=== PATIENT | female | born 1935 | race Caucasian/White ===

== ENCOUNTER → 2016-05-06 | Outpatient (CLI) | payer MEDICARE, MEDICAID ==
[~2016-05-06] MED LIST: ALPRAZOLAM0.5 MG PO; ANTIVERT 25MG25 MG PO; ANUSOL-HC SUPPO25 MG RC; ANUSOL-HC2.5% RC; ASPERCREME85G TP; ASPIRIN 32325 MG/TAB PO; ASPIRIN 81M81 MG/TA2 PO; ASPIRIN E.C.325 MG PO; BACTRIM DS 8001 TAB PO; BIAXIN 500MG T500 MG PO; CALCIUM CARBONATE; CEFTIN 250250 MG/TAB PO; CENTRUM SILVER1 TA2 PO; COLACE 100100 MG/CAP; COLACE 100100 MG/CAP PO; COZAAR100 MG PO; DEPAKOTE 125MG125 MG PO; DEPAKOTE 250MG250 MG PO; DEPAKOTE ER 25250 MG; DIOVAN 40MG40 MG PO; DIOVAN 80MG80 MG PO; DIOVAN80 M1 PO; DIOVAN80 MG PO; DULCOLAX S10 MG/SUPP RC; DULCOLAX10 MG RC; FERROUS SU325 MG/TAB PO; FLONASEALLERGY NS; FLORINEF ACETA0.1 MG; FLORINEF ACETA0.1 MG PO; FOLIC ACID; FOLIC ACID 11 MG/TA1 PO; HCTZ; HUMIRA40 MG/0.1 SC; HUMIRA40 MG/0.8 MR; HYDROCORTISO28.35 G1 TP; HYDROCORTISO28.35 GM TP; IMODIUM 2MG CAPS2 MG PO; IPRATROPIUM BROM3 M1 IH; IRON325 M2 PO; ISOSOURCE 1.5250 ML PEG; K-DUR 2020 MEQ PO; K-DUR20 MEQ PO; K-TAB20 PO; KLOR-CON/2525 MEQ; LASIX 20MG TABL20 MG PO; LEVAQUIN 750MG750 M1 PO; LEVOTHYROXINE0.1 MG PO; LEVOXYL0.075 MG PO; LOPRESSOR 225 MG/TAB PO; MACROBID 1100 MG/CAP PO; MAGNESIUM HYDROXIDE PO; MAGNESIUM250 M1 PO; MELATONIN5 M1 PO; MICROZIDE12.5 MG PO; MILK OF MA400 MG/5 M; MILK OF MA400 MG/52; MIRALAX PA17 GM/Dose PO; MULTIPLE VITAMI1 CAP PO; MVI; MYLANTA 150 ML150 M1; MYLANTA 150 ML150 M1 PO; NAMENDA 10MG TA10 MG PO; NORCO 325 MG-51 TAB PO; OYSCO 500500 M1 PO; PERIDEX (CHLOR480 ML MM; PRAVACHOL 20MG20 MG PO; PREMARIN .3MG0.3 MG PO; PREMARIN V0.625 MG/G VG; PREMARIN0.3 MG PO; PRILOSEC 20MG20 MG PO; PRO STAT; PROVERA 2.5MG2.5 MG PO; PROVERA5 MG PO; REMERON 15M15 MG/TA1 PO; ROBITUSSIN100 MG/5 M PO; SALINE MIST 4545 ML NS; SENOKOT8.6 MG PO; SEROQUEL 1100 MG/TAB PO; SEROQUEL 2525 MG/TAB; SEROQUEL 2525 MG/TAB PO; SINGULAIR 110 MG/TAB PO; SINGULAIR10 MG PO; SYNTHROID0.075 MG/T PO; SYNTHROID0.088 MG/T PO; SYNTHROID0.1 MG/TAB PO; THERAGRAN1 TA1 PO; TOPROL XL 25MG25 MG PO; TUMS 500500 MG PO; TYLENOL 325MG325 MG; TYLENOL 325MG325 MG PO; TYLENOL ARTHRI650 M1; TYLENOL SU650 MG/SUP RC; VITAMIN C500 MG PO; VITAMIN E200 I1 PO; XANAX .25M0.25 MG/TA PO; XANAX 0.5MG0.5 MG PO; XARELTO10 MG PO; ZANTAC 150MG T150 MG PO; ZITHROMAX500 M2 PO; [UNRECOGNIZED DRUG - OTHER] PEG; [UNRECOGNIZED DRUG - OTHER] PO
== END ==
LOC: ZCOL.LAB 15:56
DX: F03.90 Unspecified dementia, unspecified severity, without behavioral disturbance, psychotic disturbance, mood disturbance, and anxiety (principal)

== ENCOUNTER → 2016-07-14 | Outpatient (CLI) | payer MEDICARE, MEDICAID ==
[2016-07-14 17:43] LABS: ADJUSTED CALCIUM 9.5 mg/dL (8.4-10.2); ALBUMIN 3.9 gm/dL (3.5-5.0); BILIRUBIN,TOTAL 0.7 mg/dL (0.0-1.0); CALCIUM 9.4 mg/dL (8.4-10.2); CREATININE, serum 1.24 mg/dL (0.52-1.25); POTASSIUM 4.3 mmol/L (3.4-5.0); TOTAL PROTEIN 6.9 gm/dL (6.4-8.2)
== END ==
LOC: ZCOL.LAB 15:05
PROVIDERS: Internal Medicine
DX: E87.1 Hypo-osmolality and hyponatremia (principal)

== ENCOUNTER 2016-08-21 23:40 | Inpatient (IN) | payer MEDICARE, MEDICAID ==
[~2016-08-21] VITALS: Ht 172.7 cm; Wt 81.3 kg
[~2016-08-21 23:40] MED LIST changes: -ASPERCREME85G TP; -CEFTIN 250250 MG/TAB PO; -FERROUS SU325 MG/TAB PO; -IMODIUM 2MG CAPS2 MG PO; -K-TAB20 PO; -MACROBID 1100 MG/CAP PO; -MICROZIDE12.5 MG PO; -MILK OF MA400 MG/52; -MIRALAX PA17 GM/Dose PO; -NORCO 325 MG-51 TAB PO
[2016-08-22] MEDS ORDERED: SYNTHROID0.1 MG/TAB PO (01:12)
[2016-08-22 01:14] LABS: BASO # 0.1 (0.0-0.2); BASO % 0.2 % (0.0-2.0); EOS # 0.2 (0.0-0.7); EOS % 0.8 % (0-4.0); GRAN % 85.8 % (42.2-75.2); HEMOGLOBIN 12.1 g/dl (12.5-16.0); LYMPH # 1.8 (1.2-3.4); LYMPH % 7.7 % (20.0-51.0); MEAN CELL VOLUME 93 fl (80.0-100.0); MEAN CORPUSCULAR HEMOGLOBIN 32 pg (27.0-31.0); MEAN CORPUSCULAR HGB CONC 35 g/dl (33.0-37.0); MEAN PLATELET VOLUME 9.7 fl (7.4-10.4); MONO # 1.1 (0.1-0.6); MONO % 4.5 % (1.7-9.3); PLATELET COUNT 263 K/mm3 (130-400); RED BLOOD COUNT 3.78 M/mm3 (4.10-5.30); REDCELL DISTRIBUTION WIDTH-CV 13.4 % (11.5-14.5)
[2016-08-22 01:15] LABS: HEMATOCRIT 35.1 % (37.0-47.0); WHITE BLOOD COUNT 23.3 K/mm3 (4.8-10.8)
[2016-08-22 01:19] LABS: PROTHROMBIN TIME 11.5 SECONDS (9.7-12.8)
[2016-08-22 01:24] LABS: ADJUSTED CALCIUM 8.9 mg/dL (8.4-10.2); ALANINE AMINOTRANSFERASE 53 U/L (9-52); ALBUMIN 4.1 gm/dL (3.5-5.0); ALKALINE PHOSPHATASE 91 U/L (50-136); ANION GAP 12 mmol/L (7-16); BILIRUBIN,TOTAL 0.6 mg/dL (0.0-1.0); BLOOD UREA NITROGEN 32 mg/dL (7-17); CARBON DIOXIDE 25 mmol/L (22-30); CREATININE, serum 1.91 mg/dL (0.52-1.25); GLUCOSE 127 mg/dL (74-106); SODIUM 125 mmol/L (137-145); TOTAL PROTEIN 7.2 gm/dL (6.4-8.2)
[2016-08-22 01:26] LABS: CHLORIDE 88 mmol/L (98-107); POTASSIUM 5.8 mmol/L (3.4-5.0)
[2016-08-22] MEDS ORDERED: ASPIRIN 81M81 MG/TA2 PO (01:28)
[2016-08-22] MEDS ORDERED: MIRALAX PA17 GM/Dose PO (01:29)
[2016-08-22] MEDS ORDERED: MICROZIDE12.5 MG PO (01:32)
[2016-08-22] MEDS ORDERED: MILK OF MA400 MG/52 (01:35)
[2016-08-22] MEDS ORDERED: IMODIUM 2MG CAPS2 MG PO (01:37)
[2016-08-22] MEDS ORDERED: ASPERCREME85G TP (01:38)
[2016-08-22] MEDS ORDERED: NORCO 325 MG-51 TAB PO (01:38)
[2016-08-22 02:03] LABS: TROPONIN-I < 0.012 ng/mL (0.000-0.034)
[2016-08-22 03:25] VITALS: BP 113/56; PULSE 62; TEMP 97.6
[2016-08-22 06:11] LABS: HYALINE CAST >12 /lpf; PH 5 (5-8); SQUAMOUS EPITHELIAL 0-2 /hpf; URINE APPEARANCE Cloudy; URINE BACTERIA Moderate /hpf; URINE BILIRUBIN Negative (NEGATIVE); URINE BLOOD Negative (NEGATIVE); URINE COLOR Yellow; URINE GLUCOSE Negative (NEGATIVE); URINE KETONE Negative (NEGATIVE); URINE UROBILINOGEN Negative (NEGATIVE); URINE WBC >50 /hpf
[2016-08-22 06:59] LABS: BASO # 0.1 (0.0-0.2); BASO % 0.2 % (0.0-2.0); EOS % 0.1 % (0-4.0); GRAN # 18.7 (1.4-6.5); LYMPH # 1.3 (1.2-3.4); LYMPH % 5.9 % (20.0-51.0); MEAN CELL VOLUME 94 fl (80.0-100.0); MEAN CORPUSCULAR HGB CONC 34 g/dl (33.0-37.0); MEAN PLATELET VOLUME 9.9 fl (7.4-10.4); MONO # 1.3 (0.1-0.6); MONO % 5.9 % (1.7-9.3); PLATELET COUNT 286 K/mm3 (130-400); RED BLOOD COUNT 3.67 M/mm3 (4.10-5.30); REDCELL DISTRIBUTION WIDTH-CV 13.3 % (11.5-14.5)
[2016-08-22 07:07] LABS: HEMATOCRIT 34.6 % (37.0-47.0); HEMOGLOBIN 11.6 g/dl (12.5-16.0); MEAN CORPUSCULAR HEMOGLOBIN 32 pg (27.0-31.0); WHITE BLOOD COUNT 21.5 K/mm3 (4.8-10.8)
[2016-08-22 07:19] LABS: CALCIUM 8.8 mg/dL (8.4-10.2); CREATININE, serum 2.41 mg/dL (0.52-1.25)
[2016-08-22 07:42] LABS: POTASSIUM 8.3 mmol/L (3.4-5.0)
[2016-08-22 08:43] VITALS: BP 103/53; PULSE 64; TEMP 97.5
[2016-08-22 13:55] VITALS: BP 101/47; PULSE 62; TEMP 96.5
[2016-08-22 18:22] VITALS: BP 106/65; PULSE 64; TEMP 97.5
[2016-08-22 19:53] LABS: CREATININE, serum 2.61 mg/dL (0.52-1.25)
[2016-08-22 21:41] VITALS: BP 128/58; PULSE 72; TEMP 97
[2016-08-23] VITALS (15 sets, daily range): BP systolic 109–157; BP diastolic 38–88; PULSE 64–99; TEMP 97–99.3
[2016-08-23 08:09] LABS: ALBUMIN 2.7 gm/dL (3.5-5.0); BILIRUBIN,TOTAL 0.5 mg/dL (0.0-1.0); CREATININE, serum 2.09 mg/dL (0.52-1.25); POTASSIUM 5.2 mmol/L (3.4-5.0); TOTAL PROTEIN 5.1 gm/dL (6.4-8.2)
[2016-08-23 08:10] LABS: BASO % 0.2 % (0.0-2.0); EOS # 0.2 (0.0-0.7); LYMPH # 1.5 (1.2-3.4); MEAN CORPUSCULAR HGB CONC 33 g/dl (33.0-37.0)
[2016-08-23 08:27] LABS: MEAN CORPUSCULAR HEMOGLOBIN 32 pg (27.0-31.0)
[2016-08-23 08:58] LABS: EOS % 1.2 % (0-4.0); GRAN # 11.5 (1.4-6.5); GRAN % 81.9 % (42.2-75.2); HEMOGLOBIN 7.6 g/dl (12.5-16.0); LYMPH % 10.5 % (20.0-51.0); MEAN CELL VOLUME 96 fl (80.0-100.0); MEAN PLATELET VOLUME 9.9 fl (7.4-10.4); MONO # 0.8 (0.1-0.6); MONO % 5.6 % (1.7-9.3); PLATELET COUNT 175 K/mm3 (130-400); RED BLOOD COUNT 2.39 M/mm3 (4.10-5.30); REDCELL DISTRIBUTION WIDTH-CV 13.5 % (11.5-14.5)
[2016-08-23 14:29] LABS: CREATININE, serum 1.79 mg/dL (0.52-1.25); POTASSIUM 5.3 mmol/L (3.4-5.0)
[2016-08-24 01:21] VITALS: BP 142/51; PULSE 85; TEMP 99.2
[2016-08-24 04:50] VITALS: BP 127/38; PULSE 95; TEMP 98.6
[2016-08-24 07:07] LABS: BASO % 0.3 % (0.0-2.0); EOS # 0.4 (0.0-0.7); EOS % 2.9 % (0-4.0); GRAN # 8.3 (1.4-6.5); LYMPH # 2.6 (1.2-3.4); LYMPH % 21.6 % (20.0-51.0); MEAN CELL VOLUME 94 fl (80.0-100.0); MEAN CORPUSCULAR HGB CONC 33 g/dl (33.0-37.0); MONO # 0.7 (0.1-0.6); MONO % 5.5 % (1.7-9.3); PLATELET COUNT 148 K/mm3 (130-400); RED BLOOD COUNT 2.78 M/mm3 (4.10-5.30); REDCELL DISTRIBUTION WIDTH-CV 15.6 % (11.5-14.5)
[2016-08-24 07:32] LABS: HEMATOCRIT 26.1 % (37.0-47.0); HEMOGLOBIN 8.7 g/dl (12.5-16.0); MEAN CORPUSCULAR HEMOGLOBIN 31 pg (27.0-31.0)
[2016-08-24 07:55] LABS: CALCIUM 7.8 mg/dL (8.4-10.2); CREATININE, serum 1.43 mg/dL (0.52-1.25); POTASSIUM 4.5 mmol/L (3.4-5.0)
[2016-08-24 09:33] VITALS: BP 115/42; PULSE 94; TEMP 99.2
[2016-08-24 13:18] VITALS: BP 130/40; PULSE 49; TEMP 98.7
[2016-08-24 17:30] VITALS: BP 154/89; PULSE 119
[2016-08-24 22:29] VITALS: BP 140/65; PULSE 84; TEMP 98.1
[2016-08-25] VITALS (17 sets, daily range): BP systolic 105–178; BP diastolic 46–85; PULSE 76–117; TEMP 97.6–98.6
[2016-08-25 06:54] LABS: BASO # 0.1 (0.0-0.2); BASO % 0.5 % (0.0-2.0); EOS # 0.4 (0.0-0.7); EOS % 3.8 % (0-4.0); GRAN # 6.2 (1.4-6.5); GRAN % 63.8 % (42.2-75.2); LYMPH # 2.3 (1.2-3.4); LYMPH % 23.9 % (20.0-51.0); MEAN CELL VOLUME 93 fl (80.0-100.0); MEAN CORPUSCULAR HGB CONC 34 g/dl (33.0-37.0); MEAN PLATELET VOLUME 9.3 fl (7.4-10.4); MONO # 0.8 (0.1-0.6); MONO % 7.7 % (1.7-9.3); PLATELET COUNT 149 K/mm3 (130-400); RED BLOOD COUNT 2.79 M/mm3 (4.10-5.30); REDCELL DISTRIBUTION WIDTH-CV 15.1 % (11.5-14.5); WHITE BLOOD COUNT 9.8 K/mm3 (4.8-10.8)
[2016-08-25 07:03] LABS: CALCIUM 7.9 mg/dL (8.4-10.2); CREATININE, serum 0.94 mg/dL (0.52-1.25); POTASSIUM 4.1 mmol/L (3.4-5.0)
[2016-08-25 07:07] LABS: HEMATOCRIT 25.9 % (37.0-47.0); HEMOGLOBIN 8.7 g/dl (12.5-16.0); MEAN CORPUSCULAR HEMOGLOBIN 31 pg (27.0-31.0)
[2016-08-26 01:32] VITALS: BP 143/63; PULSE 58; TEMP 96.9
[2016-08-26 06:16] VITALS: BP 169/73; PULSE 81; TEMP 97.8
[2016-08-26 07:47] LABS: HEMATOCRIT 29.4 % (37.0-47.0); INR 1.1 (0.8-3.0); PROTHROMBIN TIME 12.4 SECONDS (9.7-12.8)
[2016-08-26 10:11] VITALS: BP 156/58; PULSE 78; TEMP 98.3
[2016-08-26 13:25] VITALS: BP 170/82; PULSE 85; TEMP 97
[2016-08-26 18:03] VITALS: BP 172/67; PULSE 95; TEMP 97.9
[2016-08-26 21:49] VITALS: BP 158/65; PULSE 98; TEMP 99.1
[2016-08-27 01:22] VITALS: BP 166/75; PULSE 93; TEMP 99
[2016-08-27 05:01] VITALS: BP 159/60; PULSE 85; TEMP 98.1
[2016-08-27 07:02] LABS: HEMATOCRIT 25.5 % (37.0-47.0); HEMOGLOBIN 8.5 g/dl (12.5-16.0)
[2016-08-27 09:19] VITALS: BP 157/86; PULSE 109; TEMP 99.4
[2016-08-27] MEDS ORDERED: NORCO 325 MG-51 TAB PO (11:12)
[2016-08-27] MEDS ORDERED: CEFTIN 250250 MG/TAB PO (11:18)
[2016-08-27] MEDS ORDERED: FERROUS SU325 MG/TAB PO (11:35)
[2016-08-27 14:07] VITALS: BP 163/76; PULSE 89; TEMP 99.2
[2016-08-27] MEDS ORDERED: ASPIRIN 32325 MG/TAB PO (14:24)
[2016-08-27 14:40] VITALS: BP 163/76; PULSE 89; TEMP 99.2
[2016-08-28] MEDS ORDERED: COLACE 100100 MG/CAP PO (22:28)
== END 2016-08-27 15:23 | DRG 481 ==
LOC: COL.ER 23:40 → SURG 08-22 01:50
PROVIDERS: Internal Medicine; Nurse Practitioner Family; Orthopaedic Surgery; Physician Assistant
PROC: 0QS704Z Reposition Left Upper Femur with Internal Fixation Device, Open Approach (ICD-10-PCS; principal; 2016-08-25 08:30)
DX: S72.002A Fracture of unspecified part of neck of left femur, initial encounter for closed fracture (principal); M97.02XA Periprosthetic fracture around internal prosthetic left hip joint, initial encounter; E87.1 Hypo-osmolality and hyponatremia; F05 Delirium due to known physiological condition; N39.0 Urinary tract infection, site not specified; N17.9 Acute kidney failure, unspecified; Z66 Do not resuscitate; W18.30XA Fall on same level, unspecified, initial encounter; I10 Essential (primary) hypertension; B96.20 Unspecified Escherichia coli [E. coli] as the cause of diseases classified elsewhere; F03.90 Unspecified dementia, unspecified severity, without behavioral disturbance, psychotic disturbance, mood disturbance, and anxiety; Z86.73 Personal history of transient ischemic attack (TIA), and cerebral infarction without residual deficits; Z87.891 Personal history of nicotine dependence; E87.5 Hyperkalemia; D50.0 Iron deficiency anemia secondary to blood loss (chronic)
CPT/HCPCS: 99223-AI; 99232-AI; 99233-AI; 99239; A4315; A9284; C1713; C1776; J0610; J0690; J0696; J1100; J1644; J1815; J2270; J2405; J2704; J3010; J7030; J7120; L1830; P9016

== ENCOUNTER 2016-08-28 18:31 | Emergency (ER) | payer MEDICARE, MEDICAID, BC ==
[~2016-08-28] VITALS: Wt 79.1 kg
[~2016-08-28 18:31] MED LIST changes: +ASPERCREME85G TP; +CEFTIN 250250 MG/TAB PO; +FERROUS SU325 MG/TAB PO; +IMODIUM 2MG CAPS2 MG PO; +MICROZIDE12.5 MG PO; +MILK OF MA400 MG/52; +MIRALAX PA17 GM/Dose PO; +NORCO 325 MG-51 TAB PO
[2016-08-28 18:38] VITALS: TEMP 98
[2016-08-28 19:41] LABS: VENOUS BLOOD GAS BE 8.6 (-4-4); VENOUS BLOOD GAS SAO2 22.4 % (60-80); VENOUS BLOOD GAS SITE VENIPUNCTURE
[2016-08-28 19:46] LABS: BASO # 0.1 (0.0-0.2); BASO % 0.5 % (0.0-2.0); EOS # 0.4 (0.0-0.7); EOS % 3.4 % (0-4.0); GRAN # 7.4 (1.4-6.5); GRAN % 58.6 % (42.2-75.2); LYMPH # 3.2 (1.2-3.4); LYMPH % 25.6 % (20.0-51.0); MEAN CELL VOLUME 94 fl (80.0-100.0); MEAN CORPUSCULAR HGB CONC 33 g/dl (33.0-37.0); MONO % 7.7 % (1.7-9.3); PLATELET COUNT 238 K/mm3 (130-400); RED BLOOD COUNT 3.27 M/mm3 (4.10-5.30); REDCELL DISTRIBUTION WIDTH-CV 15.1 % (11.5-14.5); WHITE BLOOD COUNT 12.6 K/mm3 (4.8-10.8)
[2016-08-28 19:48] LABS: HEMATOCRIT 30.7 % (37.0-47.0); HEMOGLOBIN 10.1 g/dl (12.5-16.0); MEAN CORPUSCULAR HEMOGLOBIN 31 pg (27.0-31.0)
[2016-08-28 19:58] LABS: ACETAMINOPHEN < 10 ug/mL (10-30); ANION GAP 8 mmol/L (7-16); BLOOD UREA NITROGEN 18 mg/dL (7-17); C-REACTIVE PROTEIN 5.2 mg/dL (0.0-0.9); CALCIUM 8.7 mg/dL (8.4-10.2); CARBON DIOXIDE 34 mmol/L (22-30); CHLORIDE 95 mmol/L (98-107); CREATININE, serum 0.99 mg/dL (0.52-1.25); GLUCOSE 86 mg/dL (74-106); POTASSIUM 3.7 mmol/L (3.4-5.0); SALICYLATE < 1.0 mg/dL; SODIUM 137 mmol/L (137-145)
[2016-08-28 20:05] LABS: B-TYPE NATRIURETIC PEPTIDE 10800 pg/mL (0-450)
[2016-08-28 20:07] LABS: TROPONIN-I 0.143 ng/mL (0.000-0.034)
[2016-08-28 20:50] LABS: PH 7 (5-8); SQUAMOUS EPITHELIAL None Seen /hpf; URINE APPEARANCE Clear; URINE BACTERIA None Seen /hpf; URINE BILIRUBIN Negative (NEGATIVE); URINE BLOOD Negative (NEGATIVE); URINE COLOR Yellow; URINE GLUCOSE Negative (NEGATIVE); URINE KETONE Negative (NEGATIVE); URINE RBC 0-2 /hpf; URINE UROBILINOGEN Negative (NEGATIVE); URINE WBC 0-2 /hpf
[2016-08-28 21:15] LABS: AMPHETAMINE URINE NEGATIVE; BARBITURATES URINE NEGATIVE; BENZODIAZEPINES URINE NEGATIVE; BUPRENORPHINE URINE NEGATIVE; METHADONE URINE NEGATIVE; OPIATES URINE POSITIVE; OXYCODONE URINE NEGATIVE; PHENCYCLIDINE URINE NEGATIVE; PROPOXYPHENE URINE NEGATIVE; THC CANNABINOIDS URINE NEGATIVE
[2016-08-28] MEDS ORDERED: COLACE 100100 MG/CAP PO (22:28)
[2016-08-28 23:25] VITALS: BP 146/56; PULSE 68
== END 2016-08-28 23:32 | disposition home or self-care (01) ==
LOC: COL.ER 18:31
PROVIDERS: Emergency Medicine
DX: G89.18 Other acute postprocedural pain (principal); S72.92XD Unspecified fracture of left femur, subsequent encounter for closed fracture with routine healing; E03.9 Hypothyroidism, unspecified; F03.90 Unspecified dementia, unspecified severity, without behavioral disturbance, psychotic disturbance, mood disturbance, and anxiety; I10 Essential (primary) hypertension; Z86.73 Personal history of transient ischemic attack (TIA), and cerebral infarction without residual deficits; Z87.891 Personal history of nicotine dependence
CPT/HCPCS: J1170; J7030

== ENCOUNTER → 2016-09-02 | Outpatient (REF) ==
[~2016-09-02] MED LIST changes: +K-TAB20 PO; +MACROBID 1100 MG/CAP PO
[2016-09-02 11:27] LABS: BASO % 0.2 % (0.0-2.0); EOS # 0.2 (0.0-0.7); EOS % 1.9 % (0-4.0); GRAN % 70.1 % (42.2-75.2); LYMPH # 2.5 (1.2-3.4); LYMPH % 19.6 % (20.0-51.0); MEAN CELL VOLUME 99 fl (80.0-100.0); MEAN CORPUSCULAR HGB CONC 32 g/dl (33.0-37.0); MEAN PLATELET VOLUME 9.4 fl (7.4-10.4); MONO # 0.9 (0.1-0.6); MONO % 6.9 % (1.7-9.3); PLATELET COUNT 265 K/mm3 (130-400); REDCELL DISTRIBUTION WIDTH-CV 15.9 % (11.5-14.5); WHITE BLOOD COUNT 12.8 K/mm3 (4.8-10.8)
[2016-09-02 11:30] LABS: HEMATOCRIT 26.6 % (37.0-47.0); HEMOGLOBIN 8.6 g/dl (12.5-16.0); MEAN CORPUSCULAR HEMOGLOBIN 32 pg (27.0-31.0)
[2016-09-02 11:45] LABS: ADJUSTED CALCIUM 8.3 mg/dL (8.4-10.2); ALBUMIN 2.7 gm/dL (3.5-5.0); BILIRUBIN,TOTAL 1.1 mg/dL (0.0-1.0); CALCIUM 7.3 mg/dL (8.4-10.2); CREATININE, serum 0.89 mg/dL (0.52-1.25); MAGNESIUM 1.7 mg/dL (1.6-2.3); POTASSIUM 3.8 mmol/L (3.4-5.0); TOTAL PROTEIN 5.2 gm/dL (6.4-8.2)
[2016-09-02 12:12] LABS: THYROID STIMULATING HORMONE 49.3 uIU/mL (0.465-4.680)
== END ==
LOC: ZCOL.LAB 11:19
DX: Z01.89 Encounter for other specified special examinations (principal)

== ENCOUNTER 2016-09-06 22:14 | Inpatient (IN) | payer MEDICARE, BC, MEDICAID ==
[~2016-09-06] VITALS: Ht 185.4 cm; Wt 86.1 kg
[~2016-09-06 22:14] MED LIST changes: -K-TAB20 PO; -MACROBID 1100 MG/CAP PO
[2016-09-06 23:01] LABS: BASO # 0.1 (0.0-0.2); BASO % 0.4 % (0.0-2.0); EOS % 0.3 % (0-4.0); GRAN # 8.9 (1.4-6.5); GRAN % 73.9 % (42.2-75.2); LYMPH # 2.1 (1.2-3.4); MEAN CELL VOLUME 91 fl (80.0-100.0); MEAN CORPUSCULAR HGB CONC 35 g/dl (33.0-37.0); MEAN PLATELET VOLUME 9.5 fl (7.4-10.4); MONO # 0.9 (0.1-0.6); MONO % 7.3 % (1.7-9.3); PLATELET COUNT 440 K/mm3 (130-400); RED BLOOD COUNT 3.06 M/mm3 (4.10-5.30); REDCELL DISTRIBUTION WIDTH-CV 15.9 % (11.5-14.5)
[2016-09-06 23:08] LABS: ADJUSTED CALCIUM 8.3 mg/dL (8.4-10.2); ALANINE AMINOTRANSFERASE 449 U/L (9-52); ALBUMIN 3.6 gm/dL (3.5-5.0); ALKALINE PHOSPHATASE 750 U/L (50-136); ANION GAP 11 mmol/L (7-16); BILIRUBIN,TOTAL 2.9 mg/dL (0.0-1.0); BLOOD UREA NITROGEN 12 mg/dL (7-17); CARBON DIOXIDE 30 mmol/L (22-30); CREATININE, serum 0.83 mg/dL (0.52-1.25); GLUCOSE 99 mg/dL (74-106); LIPASE 1536 U/L (23-300); MAGNESIUM 1.5 mg/dL (1.6-2.3); PHOSPHOROUS 3.3 mg/dL (2.5-4.5); POTASSIUM 3.4 mmol/L (3.4-5.0); SODIUM 121 mmol/L (137-145); TOTAL PROTEIN 6.7 gm/dL (6.4-8.2)
[2016-09-06 23:09] LABS: INR 1.1 (0.8-3.0)
[2016-09-06 23:10] LABS: HEMATOCRIT 27.8 % (37.0-47.0); HEMOGLOBIN 9.7 g/dl (12.5-16.0); MEAN CORPUSCULAR HEMOGLOBIN 32 pg (27.0-31.0)
[2016-09-06 23:11] LABS: ACETAMINOPHEN < 10 ug/mL (10-30)
[2016-09-06 23:12] LABS: CHLORIDE 81 mmol/L (98-107); PARTIAL THROMBOPLASTIN TIME 28.6 SECONDS (26.0-37.0)
[2016-09-06 23:43] LABS: PH 6 (5-8); SQUAMOUS EPITHELIAL 0-2 /hpf; URINE APPEARANCE Cloudy; URINE BACTERIA None Seen /hpf; URINE BILIRUBIN Negative (NEGATIVE); URINE BLOOD Negative (NEGATIVE); URINE COLOR Amber; URINE GLUCOSE Negative (NEGATIVE); URINE KETONE Negative (NEGATIVE); URINE RBC 0-2 /hpf; URINE UROBILINOGEN >=4.0 mg/dL (NEGATIVE)
[2016-09-06 23:45] LABS: URINE WBC >50 /hpf
[2016-09-07 01:19] VITALS: BP 182/93; PULSE 64; TEMP 98.2
[2016-09-07 03:41] VITALS: BP 162/90; PULSE 66; TEMP 98.3
[2016-09-07 08:40] VITALS: BP 155/79; PULSE 65; TEMP 98.2
[2016-09-07 12:19] VITALS: BP 172/59; PULSE 64; TEMP 99
[2016-09-07 14:37] LABS: MAGNESIUM 1.5 mg/dL (1.6-2.3)
[2016-09-07 16:42] VITALS: BP 168/78; PULSE 78; TEMP 98.1
[2016-09-07 23:30] VITALS: BP 160/58; PULSE 77; TEMP 98
[2016-09-08 03:51] VITALS: BP 169/60; PULSE 79; TEMP 98.5
[2016-09-08 07:45] VITALS: BP 178/65; PULSE 94; TEMP 98.9
[2016-09-08 08:18] LABS: BASO # 0.1 (0.0-0.2); BASO % 0.7 % (0.0-2.0); EOS # 0.1 (0.0-0.7); EOS % 0.7 % (0-4.0); GRAN # 7.4 (1.4-6.5); GRAN % 69.3 % (42.2-75.2); LYMPH # 1.8 (1.2-3.4); LYMPH % 17.2 % (20.0-51.0); MEAN CELL VOLUME 95 fl (80.0-100.0); MEAN CORPUSCULAR HGB CONC 33 g/dl (33.0-37.0); MONO # 1.2 (0.1-0.6); PLATELET COUNT 444 K/mm3 (130-400); RED BLOOD COUNT 2.62 M/mm3 (4.10-5.30); REDCELL DISTRIBUTION WIDTH-CV 17.2 % (11.5-14.5); WHITE BLOOD COUNT 10.7 K/mm3 (4.8-10.8)
[2016-09-08 08:19] LABS: HEMATOCRIT 24.9 % (37.0-47.0); HEMOGLOBIN 8.3 g/dl (12.5-16.0); MEAN CORPUSCULAR HEMOGLOBIN 32 pg (27.0-31.0)
[2016-09-08 08:41] LABS: ADJUSTED CALCIUM 8.6 mg/dL (8.4-10.2); ALBUMIN 2.8 gm/dL (3.5-5.0); BILIRUBIN,TOTAL 1.5 mg/dL (0.0-1.0); CALCIUM 7.6 mg/dL (8.4-10.2); CREATININE, serum 0.68 mg/dL (0.52-1.25); MAGNESIUM 1.9 mg/dL (1.6-2.3); TOTAL PROTEIN 5.5 gm/dL (6.4-8.2)
[2016-09-08 11:25] VITALS: BP 154/60; PULSE 79; TEMP 99
[2016-09-08 15:52] VITALS: BP 171/70; PULSE 97; TEMP 98.9
[2016-09-08 19:32] VITALS: BP 171/68; PULSE 93; TEMP 99.2
[2016-09-08 23:54] VITALS: BP 162/64; PULSE 87; TEMP 98.9
[2016-09-09 03:51] VITALS: BP 166/72; PULSE 91; TEMP 98.3
[2016-09-09 08:01] VITALS: BP 171/67; PULSE 93; TEMP 99.1
[2016-09-09] MEDS ORDERED: MACROBID 1100 MG/CAP PO (11:20)
[2016-09-09] MEDS ORDERED: TYLENOL 325MG325 MG PO (11:24)
[2016-09-09] MEDS ORDERED: K-TAB20 PO (11:27)
[2016-09-09 11:28] LABS: MEAN CELL VOLUME 96 fl (80.0-100.0); MEAN CORPUSCULAR HGB CONC 33 g/dl (33.0-37.0); MEAN PLATELET VOLUME 9.4 fl (7.4-10.4); PLATELET COUNT 475 K/mm3 (130-400); RED BLOOD COUNT 2.86 M/mm3 (4.10-5.30); REDCELL DISTRIBUTION WIDTH-CV 17.4 % (11.5-14.5); WHITE BLOOD COUNT 12.2 K/mm3 (4.8-10.8)
[2016-09-09] MEDS ORDERED: XANAX 0.5MG0.5 MG PO (11:28)
[2016-09-09] MEDS ORDERED: NORCO 325 MG-51 TAB PO (11:28)
[2016-09-09] MEDS ORDERED: XANAX .25M0.25 MG/TA PO (11:28)
[2016-09-09 11:34] LABS: ADJUSTED CALCIUM 8.4 mg/dL (8.4-10.2); ALBUMIN 3.1 gm/dL (3.5-5.0); BILIRUBIN,TOTAL 1.7 mg/dL (0.0-1.0); CALCIUM 7.7 mg/dL (8.4-10.2); CREATININE, serum 0.61 mg/dL (0.52-1.25); MAGNESIUM 1.7 mg/dL (1.6-2.3); POTASSIUM 3.2 mmol/L (3.4-5.0); TOTAL PROTEIN 5.9 gm/dL (6.4-8.2)
[2016-09-09 11:39] LABS: HEMATOCRIT 27.4 % (37.0-47.0); MEAN CORPUSCULAR HEMOGLOBIN 31 pg (27.0-31.0)
[2016-09-09 11:40] LABS: ADD PATHOLOGY DIFF REVIEW NO
[2016-09-09 12:06] VITALS: BP 160/60; PULSE 75; TEMP 99.5
[2016-09-09 12:24] LABS: BAND 7 % (0-10); NEUTROPHILS 74 % (42.0-75.2); PLATELET ESTIMATE INCREASED (NORMAL); TOTAL CELLS COUNTED 100
[2016-09-09 13:02] VITALS: BP 160/60; PULSE 75; TEMP 99.5
== END 2016-09-09 14:45 | DRG 445 ==
LOC: COL.ER 22:14 → MEDICAL 09-07 00:31 → EDBEDREQ 09-07 00:48 → MEDICAL 09-09 14:45
PROVIDERS: Emergency Medicine; Family Medicine
DX: K80.50 Calculus of bile duct without cholangitis or cholecystitis without obstruction (principal); E87.1 Hypo-osmolality and hyponatremia; N39.0 Urinary tract infection, site not specified; Z66 Do not resuscitate; E87.6 Hypokalemia; E83.42 Hypomagnesemia; I10 Essential (primary) hypertension; B95.2 Enterococcus as the cause of diseases classified elsewhere; F03.90 Unspecified dementia, unspecified severity, without behavioral disturbance, psychotic disturbance, mood disturbance, and anxiety; Z87.891 Personal history of nicotine dependence
CPT/HCPCS: 99222-AI; 99232-AI; 99239; J0696; J1644; J1956; J3475; J7030; J7050; Q9967

== ENCOUNTER → 2016-09-06 | Outpatient (REF) ==
[2016-09-06 16:29] LABS: ADJUSTED CALCIUM 8.3 mg/dL (8.4-10.2); ALBUMIN 3.4 gm/dL (3.5-5.0); BILIRUBIN,TOTAL 3.9 mg/dL (0.0-1.0); CALCIUM 7.8 mg/dL (8.4-10.2); CREATININE, serum 0.81 mg/dL (0.52-1.25); POTASSIUM 3.3 mmol/L (3.4-5.0); TOTAL PROTEIN 6.5 gm/dL (6.4-8.2)
== END ==
LOC: ZCOL.LAB 16:04
PROVIDERS: Internal Medicine
DX: Z01.89 Encounter for other specified special examinations (principal)

== ENCOUNTER → 2016-09-10 | Outpatient (REF) ==
[~2016-09-10] MED LIST changes: +K-TAB20 PO; +MACROBID 1100 MG/CAP PO
[2016-09-10 13:47] LABS: MEAN CELL VOLUME 98 fl (80.0-100.0); MEAN CORPUSCULAR HGB CONC 32 g/dl (33.0-37.0); MEAN PLATELET VOLUME 9.7 fl (7.4-10.4); PLATELET COUNT 526 K/mm3 (130-400); RED BLOOD COUNT 3.22 M/mm3 (4.10-5.30); REDCELL DISTRIBUTION WIDTH-CV 17.7 % (11.5-14.5); WHITE BLOOD COUNT 11.7 K/mm3 (4.8-10.8)
[2016-09-10 13:48] LABS: HEMATOCRIT 31.5 % (37.0-47.0); HEMOGLOBIN 10.1 g/dl (12.5-16.0); MEAN CORPUSCULAR HEMOGLOBIN 31 pg (27.0-31.0)
[2016-09-10 14:04] LABS: ADD PATHOLOGY DIFF REVIEW NO
[2016-09-10 14:08] LABS: BAND 3 % (0-10); BASOPHIL 1 % (0-2); EOSINOPHIL 2 % (0-4); HYPOCHROMIA 1+; NEUTROPHILS 76 % (42.0-75.2); TOTAL CELLS COUNTED 100
[2016-09-10 14:09] LABS: ANISOCYTOSIS 1+
[2016-09-10 14:43] LABS: ADJUSTED CALCIUM 8.8 mg/dL (8.4-10.2); ALBUMIN 3.5 gm/dL (3.5-5.0); BILIRUBIN,TOTAL 1.6 mg/dL (0.0-1.0); CALCIUM 8.4 mg/dL (8.4-10.2); CREATININE, serum 0.76 mg/dL (0.52-1.25); POTASSIUM 4.1 mmol/L (3.4-5.0); TOTAL PROTEIN 6.4 gm/dL (6.4-8.2)
== END ==
LOC: ZCOL.LAB 13:31
DX: Z01.89 Encounter for other specified special examinations (principal)

== ENCOUNTER → 2016-09-13 | Outpatient (REF) ==
[2016-09-13 13:04] LABS: ADJUSTED CALCIUM 8.8 mg/dL (8.4-10.2); ALBUMIN 3.3 gm/dL (3.5-5.0); BILIRUBIN,TOTAL 1.3 mg/dL (0.0-1.0); CALCIUM 8.2 mg/dL (8.4-10.2); CREATININE, serum 0.73 mg/dL (0.52-1.25); POTASSIUM 4.2 mmol/L (3.4-5.0); TOTAL PROTEIN 5.8 gm/dL (6.4-8.2)
== END ==
LOC: ZCOL.LAB 12:53
PROVIDERS: Internal Medicine
DX: Z01.89 Encounter for other specified special examinations (principal)

== ENCOUNTER → 2016-10-07 | Outpatient (CLI) | payer MEDICARE, MEDICAID, BC ==
[2016-10-07 14:33] LABS: CALCIUM 9.2 mg/dL (8.4-10.2); CREATININE, serum 1.49 mg/dL (0.52-1.25); POTASSIUM 5.1 mmol/L (3.4-5.0)
== END ==
LOC: ZCOL.LAB 13:14
PROVIDERS: Internal Medicine
DX: Z01.89 Encounter for other specified special examinations (principal)

== ENCOUNTER → 2016-10-22 | Outpatient (REF) ==
[2016-10-22 15:43] LABS: BASO # 0.1 (0.0-0.2); BASO % 0.8 % (0.0-2.0); EOS # 0.2 (0.0-0.7); EOS % 2.4 % (0-4.0); GRAN # 4.4 (1.4-6.5); HEMATOCRIT 36.2 % (37.0-47.0); HEMOGLOBIN 12.3 g/dl (12.5-16.0); LYMPH # 2.5 (1.2-3.4); LYMPH % 31.9 % (20.0-51.0); MEAN CELL VOLUME 97 fl (80.0-100.0); MEAN CORPUSCULAR HEMOGLOBIN 33 pg (27.0-31.0); MEAN CORPUSCULAR HGB CONC 34 g/dl (33.0-37.0); MEAN PLATELET VOLUME 10.1 fl (7.4-10.4); MONO # 0.7 (0.1-0.6); MONO % 8.5 % (1.7-9.3); PLATELET COUNT 249 K/mm3 (130-400); RED BLOOD COUNT 3.75 M/mm3 (4.10-5.30); REDCELL DISTRIBUTION WIDTH-CV 13.9 % (11.5-14.5); WHITE BLOOD COUNT 7.8 K/mm3 (4.8-10.8)
[2016-10-22 15:55] LABS: CALCIUM 9.3 mg/dL (8.4-10.2); CREATININE, serum 1.34 mg/dL (0.52-1.25)
== END ==
LOC: ZCOL.LAB 15:34
PROVIDERS: Internal Medicine
DX: Z01.89 Encounter for other specified special examinations (principal)

== ENCOUNTER → 2016-10-27 | Outpatient (REF) ==
[2016-10-27 15:17] LABS: CALCIUM 9.1 mg/dL (8.4-10.2); CREATININE, serum 1.49 mg/dL (0.52-1.25)
== END ==
LOC: ZCOL.LAB 14:35
PROVIDERS: Internal Medicine
DX: Z01.89 Encounter for other specified special examinations (principal)

== ENCOUNTER → 2016-11-03 | Outpatient (CLI) | payer MEDICARE, MEDICAID, BC ==
[2016-11-03 19:56] LABS: CALCIUM 8.7 mg/dL (8.4-10.2); CREATININE, serum 1.15 mg/dL (0.52-1.25); POTASSIUM 4.3 mmol/L (3.4-5.0)
== END ==
LOC: ZCOL.LAB 19:35
PROVIDERS: Internal Medicine
DX: E86.0 Dehydration (principal)

== ENCOUNTER → 2016-11-22 | Outpatient (CLI) | payer MEDICARE, MEDICAID, BC ==
[2016-11-22 22:51] LABS: THYROID STIMULATING HORMONE 5.32 uIU/mL (0.465-4.680)
== END ==
LOC: ZCOL.LAB 22:06
DX: E03.9 Hypothyroidism, unspecified (principal); Z79.899 Other long term (current) drug therapy

== ENCOUNTER → 2017-01-28 | Outpatient (CLI) | payer MEDICARE, MEDICAID, BC | LOC: ZCOL.LAB 16:01 | DX: E87.6 Hypokalemia (principal) ==

== ENCOUNTER → 2017-03-30 | Outpatient (CLI) | payer MEDICARE, MEDICAID, BC ==
[2017-03-30 10:52] LABS: BASO # 0.1 (0.0-0.2); BASO % 0.7 % (0.0-2.0); EOS # 0.6 (0.0-0.7); EOS % 6.5 % (0-4.0); GRAN # 4.5 (1.4-6.5); LYMPH # 2.6 (1.2-3.4); LYMPH % 30.2 % (20.0-51.0); MEAN CELL VOLUME 96 fl (80.0-100.0); MEAN CORPUSCULAR HEMOGLOBIN 32 pg (27.0-31.0); MEAN CORPUSCULAR HGB CONC 33 g/dl (33.0-37.0); MEAN PLATELET VOLUME 10.9 fl (7.4-10.4); MONO # 0.8 (0.1-0.6); MONO % 9.4 % (1.7-9.3); PLATELET COUNT 192 K/mm3 (130-400); RED BLOOD COUNT 3.75 M/mm3 (4.10-5.30); WHITE BLOOD COUNT 8.5 K/mm3 (4.8-10.8)
[2017-03-30 10:55] LABS: HEMATOCRIT 36.1 % (37.0-47.0)
[2017-03-30 11:18] LABS: CALCIUM 8.8 mg/dL (8.4-10.2); CREATININE, serum 1.88 mg/dL (0.52-1.25); POTASSIUM 4.4 mmol/L (3.4-5.0)
== END ==
LOC: ZCOL.LAB 10:42
PROVIDERS: Internal Medicine
DX: E87.5 Hyperkalemia (principal); D64.9 Anemia, unspecified

== ENCOUNTER → 2017-04-29 | Outpatient (CLI) | payer MEDICARE, MEDICAID, BC ==
[2017-04-29 16:29] LABS: CALCIUM 9.1 mg/dL (8.4-10.2); CREATININE, serum 1.19 mg/dL (0.52-1.25); POTASSIUM 4.8 mmol/L (3.4-5.0)
[2017-04-29 16:34] LABS: VALPROIC ACID (DEPAKENE) 24.5 ug/mL (50.0-100.0)
== END ==
LOC: ZCOL.LAB 15:50
PROVIDERS: Internal Medicine
DX: E87.6 Hypokalemia (principal); R41.82 Altered mental status, unspecified

== ENCOUNTER → 2017-05-25 | Outpatient (CLI) | payer MEDICARE, MEDICAID, BC | LOC: ZCOL.LAB 16:16 | DX: F39 Unspecified mood [affective] disorder (principal) ==

== ENCOUNTER → 2017-08-25 | Outpatient (CLI) | payer MEDICARE, MEDICAID, BC ==
[2017-08-25 09:55] LABS: CALCIUM 9.2 mg/dL (8.4-10.2); CHOLESTEROL RISK RATIO 3.9; CREATININE, serum 0.91 mg/dL (0.52-1.25); POTASSIUM 4.8 mmol/L (3.4-5.0)
[2017-08-25 10:25] LABS: TSH w REFLEX 4.08 uIU/mL (0.465-4.680)
[2017-08-25 23:03] LABS: URINE MICROALBUMIN 2.1 mg/dL (0.0-1.7)
== END ==
LOC: ZCOL.LAB 08:58
PROVIDERS: Internal Medicine
DX: E87.1 Hypo-osmolality and hyponatremia (principal); E78.5 Hyperlipidemia, unspecified; E03.9 Hypothyroidism, unspecified

== ENCOUNTER → 2017-10-12 | Outpatient (CLI) | payer MEDICARE, BC, MEDICAID | LOC: COL.RAD 13:26 | DX: N39.0 Urinary tract infection, site not specified (principal) ==

== ENCOUNTER → 2017-10-21 | Outpatient (CLI) | payer MEDICARE, BC, MEDICAID ==
[2017-10-21 09:48] LABS: BASO # 0.1 (0.0-0.2); BASO % 0.8 % (0.0-2.0); EOS # 0.4 (0.0-0.7); EOS % 3.9 % (0-4.0); GRAN # 5.8 (1.4-6.5); GRAN % 62.5 % (42.2-75.2); HEMATOCRIT 35.1 % (37.0-47.0); HEMOGLOBIN 12.2 g/dl (12.5-16.0); LYMPH # 2.3 (1.2-3.4); LYMPH % 24.9 % (20.0-51.0); MEAN CELL VOLUME 92 fl (80.0-100.0); MEAN CORPUSCULAR HEMOGLOBIN 32 pg (27.0-31.0); MEAN CORPUSCULAR HGB CONC 35 g/dl (33.0-37.0); MONO # 0.7 (0.1-0.6); MONO % 7.4 % (1.7-9.3); PLATELET COUNT 283 K/mm3 (130-400); RED BLOOD COUNT 3.82 M/mm3 (4.10-5.30); REDCELL DISTRIBUTION WIDTH-CV 12.8 % (11.5-14.5)
[2017-10-21 10:15] LABS: CALCIUM 9.1 mg/dL (8.4-10.2); CREATININE, serum 1.05 mg/dL (0.52-1.25); POTASSIUM 5.1 mmol/L (3.4-5.0)
== END ==
LOC: ZCOL.LAB 09:43
PROVIDERS: Internal Medicine
DX: E87.1 Hypo-osmolality and hyponatremia (principal); B95.2 Enterococcus as the cause of diseases classified elsewhere

== ENCOUNTER → 2017-10-24 | Outpatient (CLI) | payer MEDICARE, BC, MEDICAID ==
[2017-10-24 10:49] LABS: CALCIUM 9.6 mg/dL (8.4-10.2); CREATININE, serum 1.01 mg/dL (0.52-1.25); POTASSIUM 4.9 mmol/L (3.4-5.0)
== END ==
LOC: ZCOL.LAB 10:31
PROVIDERS: Internal Medicine
DX: E87.1 Hypo-osmolality and hyponatremia (principal)

== ENCOUNTER → 2017-10-27 | Outpatient (CLI) | payer MEDICARE, BC, MEDICAID ==
[2017-10-27 13:10] LABS: CALCIUM 9.1 mg/dL (8.4-10.2); CREATININE, serum 1.26 mg/dL (0.52-1.25); POTASSIUM 4.9 mmol/L (3.4-5.0)
[2017-10-27 13:31] LABS: VALPROIC ACID (DEPAKENE) 28.7 ug/mL (50.0-100.0)
== END ==
LOC: ZCOL.LAB 12:30
PROVIDERS: Internal Medicine
DX: E87.0 Hyperosmolality and hypernatremia (principal); F39 Unspecified mood [affective] disorder

== ENCOUNTER → 2017-11-07 | Outpatient (CLI) | payer MEDICARE, BC, MEDICAID ==
[2017-11-07 16:20] LABS: CALCIUM 8.5 mg/dL (8.4-10.2); CREATININE, serum 1.05 mg/dL (0.52-1.25); POTASSIUM 4.8 mmol/L (3.4-5.0)
== END ==
LOC: ZCOL.LAB 15:31
PROVIDERS: Internal Medicine
DX: E87.1 Hypo-osmolality and hyponatremia (principal)

== ENCOUNTER → 2017-11-27 | Outpatient (CLI) | payer MEDICARE, BC, MEDICAID ==
[2017-11-27 13:17] LABS: CALCIUM 8.3 mg/dL (8.4-10.2); CREATININE, serum 0.91 mg/dL (0.52-1.25); POTASSIUM 4.9 mmol/L (3.4-5.0)
== END ==
LOC: ZCOL.LAB 12:45
PROVIDERS: Internal Medicine
DX: R79.89 Other specified abnormal findings of blood chemistry (principal)

== ENCOUNTER → 2017-12-05 | Outpatient (CLI) | payer MEDICARE, BC, MEDICAID ==
[2017-12-05 13:46] LABS: CALCIUM 8.6 mg/dL (8.4-10.2); CREATININE, serum 1.16 mg/dL (0.52-1.25); POTASSIUM 5.2 mmol/L (3.4-5.0)
== END ==
LOC: ZCOL.LAB 13:24
PROVIDERS: Internal Medicine
DX: E87.1 Hypo-osmolality and hyponatremia (principal)

== ENCOUNTER → 2018-01-04 | Outpatient (CLI) | payer MEDICARE, BC, MEDICAID | LOC: ZCOL.LAB 11:41 | DX: E87.70 Fluid overload, unspecified (principal) ==

== ENCOUNTER → 2018-01-04 | Outpatient (CLI) | payer MEDICARE, BC, MEDICAID ==
[2018-01-04 12:15] LABS: ALBUMIN 3.7 gm/dL (3.5-5.0); BILIRUBIN,TOTAL 0.3 mg/dL (0.0-1.0); CALCIUM 8.6 mg/dL (8.4-10.2); CREATININE, serum 0.99 mg/dL (0.52-1.25); POTASSIUM 4.3 mmol/L (3.4-5.0); TOTAL PROTEIN 6.3 gm/dL (6.4-8.2)
== END ==
LOC: ZCOL.LAB 11:38
PROVIDERS: Internal Medicine
DX: E87.70 Fluid overload, unspecified (principal)

== ENCOUNTER 2018-01-16 20:40 | Emergency (ER) | payer MEDICARE, BC, MEDICAID ==
[2018-01-16 20:47] VITALS: TEMP 98.6
[2018-01-16] MEDS ORDERED: CLARITIN 1010 MG/TAB PO (21:09)
[2018-01-16] MEDS ORDERED: ASPIRIN 81M81 MG/TA2 PO (21:09)
[2018-01-16] MEDS ORDERED: LEVOXYL0.112 MG PO (21:12)
[2018-01-16] MEDS ORDERED: MICRO-K 10 EXT10 MEQ PO (21:14)
[2018-01-16] MEDS ORDERED: REMERON30 MG PO (21:15)
[2018-01-16] MEDS ORDERED: SODIUM CHLORIDE1 GM PO (21:16)
[2018-01-16] MEDS ORDERED: THERAGRAN M1 UDTAB PO (21:17)
[2018-01-16] MEDS ORDERED: TRIMPEX100 MG PO (21:18)
[2018-01-16] MEDS ORDERED: VITAMIN C500 MG PO (21:20)
[2018-01-16] MEDS ORDERED: CRANBERRY FRUI405 MG PO (21:22)
[2018-01-16] MEDS ORDERED: TYLENOL 325MG325 MG PO (21:22)
[2018-01-16 21:23] LABS: BASO # 0.1 (0.0-0.2); BASO % 0.6 % (0.0-2.0); EOS # 0.3 (0.0-0.7); GRAN # 7.3 (1.4-6.5); GRAN % 64.7 % (42.2-75.2); HEMOGLOBIN 11.2 g/dl (12.5-16.0); LYMPH # 2.7 (1.2-3.4); LYMPH % 23.8 % (20.0-51.0); MEAN CELL VOLUME 98 fl (80.0-100.0); MEAN CORPUSCULAR HEMOGLOBIN 33 pg (27.0-31.0); MEAN CORPUSCULAR HGB CONC 33 g/dl (33.0-37.0); MEAN PLATELET VOLUME 9.8 fl (7.4-10.4); MONO # 0.9 (0.1-0.6); MONO % 7.5 % (1.7-9.3); PLATELET COUNT 246 K/mm3 (130-400); RED BLOOD COUNT 3.44 M/mm3 (4.10-5.30); REDCELL DISTRIBUTION WIDTH-CV 12.5 % (11.5-14.5)
[2018-01-16 21:24] LABS: HEMATOCRIT 33.8 % (37.0-47.0)
[2018-01-16] MEDS ORDERED: TOPROL XL100 MG PO (21:24)
[2018-01-16] MEDS ORDERED: ANUSOL-HC SUPPO25 MG RC (21:25)
[2018-01-16] MEDS ORDERED: DULCOLAX S10 MG/SUPP RC (21:26)
[2018-01-16] MEDS ORDERED: ASPERCREME1 EACH TP (21:26)
[2018-01-16] MEDS ORDERED: IPRATROPIUM BROM3 M1 IH (21:27)
[2018-01-16] MEDS ORDERED: MUCINEX1200 MG PO (21:28)
[2018-01-16] MEDS ORDERED: ALMACONE 360 M360 ML PO (21:28)
[2018-01-16] MEDS ORDERED: MILK OF MA400 MG/52 (21:28)
[2018-01-16] MEDS ORDERED: SALINE 45 ML45 ML NS (21:29)
[2018-01-16] MEDS ORDERED: SINGULAIR 110 MG/TAB PO (21:29)
[2018-01-16] MEDS ORDERED: CEPHALEXIN500 M1 PO (22:11)
[2018-01-16 22:30] VITALS: BP 177/74; PULSE 63
== END 2018-01-16 22:32 | disposition home or self-care (01) ==
LOC: COL.ER 20:40
PROVIDERS: Emergency Medicine
DX: K11.21 Acute sialoadenitis (principal); I11.0 Hypertensive heart disease with heart failure; I50.9 Heart failure, unspecified; E03.9 Hypothyroidism, unspecified; Z98.2 Presence of cerebrospinal fluid drainage device; Z98.890 Other specified postprocedural states; Z79.51 Long term (current) use of inhaled steroids

== ENCOUNTER → 2018-02-16 | Outpatient (CLI) | payer MEDICARE, BC, MEDICAID ==
[~2018-02-16] MED LIST changes: +ALMACONE 360 M360 ML PO; +ASPERCREME1 EACH TP; +CEPHALEXIN500 M1 PO; +CLARITIN 1010 MG/TAB PO; +CRANBERRY FRUI405 MG PO; +LEVOXYL0.112 MG PO; +MICRO-K 10 EXT10 MEQ PO; +MUCINEX1200 MG PO; +REMERON30 MG PO; +SALINE 45 ML45 ML NS; +SODIUM CHLORIDE1 GM PO; +THERAGRAN M1 UDTAB PO; +TOPROL XL100 MG PO; +TRIMPEX100 MG PO
[2018-02-16 12:23] LABS: CALCIUM 8.9 mg/dL (8.4-10.2); CREATININE, serum 1.1 mg/dL (0.52-1.25); POTASSIUM 5.2 mmol/L (3.4-5.0)
== END ==
LOC: ZCOL.LAB 11:53
PROVIDERS: Internal Medicine
DX: E87.1 Hypo-osmolality and hyponatremia (principal)

== ENCOUNTER → 2018-03-30 | Outpatient (CLI) | payer MEDICARE, BC, MEDICAID ==
[2018-03-30 11:57] LABS: CALCIUM 8.8 mg/dL (8.4-10.2); CREATININE, serum 1.11 mg/dL (0.52-1.25)
== END ==
LOC: ZCOL.LAB 11:44
PROVIDERS: Internal Medicine
DX: E87.5 Hyperkalemia (principal)

== ENCOUNTER → 2018-07-28 | Outpatient (CLI) | payer MEDICARE, BC, MEDICAID ==
[2018-07-28 14:55] LABS: ALBUMIN 3.4 gm/dL (3.5-5.0); BILIRUBIN,TOTAL 0.3 mg/dL (0.0-1.0); CALCIUM 8.6 mg/dL (8.4-10.2); CREATININE, serum 1.07 (0.52-1.25); POTASSIUM 4.4 mmol/L (3.4-5.0); TOTAL PROTEIN 6.1 gm/dL (6.4-8.2)
== END ==
LOC: ZCOL.LAB 14:25
PROVIDERS: Internal Medicine
DX: N18.3 Chronic kidney disease, stage 3 (moderate) (principal); E87.6 Hypokalemia

== ENCOUNTER → 2018-09-22 | Outpatient (CLI) | payer MEDICARE, BC, MEDICAID ==
[2018-09-22 12:54] LABS: CHOLESTEROL RISK RATIO 4.9
[2018-09-22 13:24] LABS: THYROID STIMULATING HORMONE 8.7 uIU/mL (0.465-4.680)
== END ==
LOC: ZCOL.LAB 09:37
PROVIDERS: Internal Medicine
DX: E78.5 Hyperlipidemia, unspecified (principal); E03.9 Hypothyroidism, unspecified

== ENCOUNTER → 2018-10-17 | Outpatient (CLI) | payer MEDICARE, BC, MEDICAID ==
[2018-10-17 20:04] LABS: CALCIUM 8.7 mg/dL (8.4-10.2); CREATININE, serum 1.36 (0.52-1.25); POTASSIUM 5.1 mmol/L (3.4-5.0)
== END ==
LOC: ZCOL.LAB 16:26
PROVIDERS: Internal Medicine
DX: N18.3 Chronic kidney disease, stage 3 (moderate) (principal)

== ENCOUNTER → 2018-11-08 | Outpatient (CLI) | payer MEDICARE, BC, MEDICAID ==
[2018-11-08 12:23] LABS: BASO # 0.1 (0.0-0.2); BASO % 0.8 % (0.0-2.0); EOS # 0.3 (0.0-0.7); EOS % 2.5 % (0-4.0); GRAN # 9.5 (1.4-6.5); GRAN % 71.2 % (42.2-75.2); HEMATOCRIT 37.7 % (37.0-47.0); HEMOGLOBIN 12.5 g/dl (12.5-16.0); LYMPH # 2.3 (1.2-3.4); LYMPH % 17.1 % (20.0-51.0); MEAN CELL VOLUME 97 fl (80.0-100.0); MEAN CORPUSCULAR HEMOGLOBIN 32 pg (27.0-31.0); MEAN CORPUSCULAR HGB CONC 33 g/dl (33.0-37.0); MEAN PLATELET VOLUME 10.1 fl (7.4-10.4); MONO % 7.8 % (1.7-9.3); PLATELET COUNT 292 K/mm3 (130-400); REDCELL DISTRIBUTION WIDTH-CV 12.4 % (11.5-14.5)
[2018-11-08 12:31] LABS: CREATININE, serum 1.47 (0.52-1.25)
[2018-11-08 12:49] LABS: VALPROIC ACID (DEPAKENE) 27.8 ug/mL (50.0-100.0)
== END ==
LOC: ZCOL.LAB 11:29
PROVIDERS: Internal Medicine
DX: N18.3 Chronic kidney disease, stage 3 (moderate) (principal); D63.1 Anemia in chronic kidney disease; R41.82 Altered mental status, unspecified

== ENCOUNTER 2019-01-06 22:08 | Emergency (ER) | payer MEDICARE, BC, MEDICAID ==
[2019-01-06 22:08] VITALS: TEMP 98.2
[2019-01-06 23:04] LABS: BASO # 0.1 (0.0-0.2); BASO % 0.6 % (0.0-2.0); EOS # 0.4 (0.0-0.7); GRAN # 7.1 (1.4-6.5); GRAN % 66.5 % (42.2-75.2); HEMATOCRIT 37.7 % (37.0-47.0); HEMOGLOBIN 12.6 g/dl (12.5-16.0); LYMPH # 2.1 (1.2-3.4); LYMPH % 19.9 % (20.0-51.0); MEAN CELL VOLUME 95 fl (80.0-100.0); MEAN CORPUSCULAR HEMOGLOBIN 32 pg (27.0-31.0); MEAN CORPUSCULAR HGB CONC 33 g/dl (33.0-37.0); MEAN PLATELET VOLUME 9.8 fl (7.4-10.4); MONO # 0.9 (0.1-0.6); MONO % 8.5 % (1.7-9.3); PLATELET COUNT 259 K/mm3 (130-400); RED BLOOD COUNT 3.95 M/mm3 (4.10-5.30); REDCELL DISTRIBUTION WIDTH-CV 12.4 % (11.5-14.5)
[2019-01-06 23:10] LABS: INR 0.9 (0.8-3.0)
[2019-01-06 23:20] LABS: CALCIUM 8.9 mg/dL (8.4-10.2); CREATININE, serum 1.26 (0.52-1.25); POTASSIUM 4.6 mmol/L (3.4-5.0)
[2019-01-07 01:20] LABS: COLLECTION METHOD CLEAN CATCH
[2019-01-07 01:26] LABS: MUCOUS Present /lpf; PH 7 (5-8); SQUAMOUS EPITHELIAL None Seen /hpf; URINE APPEARANCE Clear; URINE BACTERIA Rare /hpf; URINE BILIRUBIN Negative (NEGATIVE); URINE BLOOD Negative (NEGATIVE); URINE COLOR Yellow; URINE GLUCOSE Negative (NEGATIVE); URINE KETONE Negative (NEGATIVE); URINE LEUKOCYTE ESTERASE Negative (NEGATIVE); URINE NITRATE Negative (NEGATIVE); URINE PROTEIN(semi-quant) Negative (NEGATIVE); URINE RBC 0-2 /hpf; URINE UROBILINOGEN Negative (NEGATIVE)
[2019-01-07] MEDS ORDERED: MACROBID 1100 MG/CAP PO (03:09)
[2019-01-07 03:33] VITALS: BP 189/83; PULSE 75
[2019-01-07] MEDS ORDERED: NORVASC2.5 MG PO (03:45)
[2019-01-07] MEDS ORDERED: LASIX 40MG TABL40 MG PO (03:52)
[2019-01-07] MEDS ORDERED: LEVOXYL0.125 MG PO (03:54)
[2019-01-07] MEDS ORDERED: OYSTER SHELL C500 M4 PO (03:59)
[2019-01-07] MEDS ORDERED: RT ADVAIR 228 DISKUS IH (04:03)
[2019-01-07] MEDS ORDERED: MULTIVITAMIN PO (04:06)
== END 2019-01-07 03:33 ==
LOC: COL.ER 22:08
PROVIDERS: Emergency Medicine
DX: S09.90XA Unspecified injury of head, initial encounter (principal); S80.02XA Contusion of left knee, initial encounter; S80.01XA Contusion of right knee, initial encounter; S00.81XA Abrasion of other part of head, initial encounter; Z79.51 Long term (current) use of inhaled steroids; Z79.82 Long term (current) use of aspirin; W19.XXXA Unspecified fall, initial encounter; Y92.129 Unspecified place in nursing home as the place of occurrence of the external cause

== ENCOUNTER → 2019-01-22 | Outpatient (CLI) | payer MEDICARE, BC, MEDICAID ==
[~2019-01-22] MED LIST changes: +LASIX 40MG TABL40 MG PO; +LEVOXYL0.125 MG PO; +MULTIVITAMIN PO; +NORVASC2.5 MG PO; +OYSTER SHELL C500 M4 PO; +RT ADVAIR 228 DISKUS IH
[2019-01-22 16:39] LABS: ALBUMIN 4.1 gm/dL (3.5-5.0); BILIRUBIN,TOTAL 0.4 mg/dL (0.0-1.0); CREATININE, serum 1.26 (0.52-1.25); POTASSIUM 4.9 mmol/L (3.4-5.0)
== END ==
LOC: ZCOL.LAB 14:37
PROVIDERS: Nurse Practitioner
DX: N18.3 Chronic kidney disease, stage 3 (moderate) (principal)

== ENCOUNTER → 2019-04-11 | Outpatient (CLI) | payer MEDICARE, BC, MEDICAID ==
[2019-04-11 17:43] LABS: BASO # 0.1 (0.0-0.2); BASO % 0.8 % (0.0-2.0); EOS # 0.3 (0.0-0.7); EOS % 3.2 % (0-4.0); GRAN # 5.7 (1.4-6.5); GRAN % 60.7 % (42.2-75.2); HEMATOCRIT 38.7 % (37.0-47.0); HEMOGLOBIN 12.5 g/dl (12.5-16.0); LYMPH # 2.5 (1.2-3.4); LYMPH % 26.5 % (20.0-51.0); MEAN CELL VOLUME 101 fl (80.0-100.0); MEAN CORPUSCULAR HEMOGLOBIN 33 pg (27.0-31.0); MEAN CORPUSCULAR HGB CONC 32 g/dl (33.0-37.0); MEAN PLATELET VOLUME 10.8 fl (7.4-10.4); MONO # 0.8 (0.1-0.6); MONO % 8.4 % (1.7-9.3); PLATELET COUNT 253 K/mm3 (130-400); RED BLOOD COUNT 3.85 M/mm3 (4.10-5.30); REDCELL DISTRIBUTION WIDTH-CV 13.1 % (11.5-14.5)
[2019-04-11 17:44] LABS: CALCIUM 8.6 mg/dL (8.4-10.2); CREATININE, serum 1.58 (0.52-1.25); POTASSIUM 4.2 mmol/L (3.4-5.0)
== END ==
LOC: ZCOL.LAB 17:12
PROVIDERS: Nurse Practitioner
DX: N18.3 Chronic kidney disease, stage 3 (moderate) (principal); D63.1 Anemia in chronic kidney disease

== ENCOUNTER → 2019-05-25 | Outpatient (CLI) | payer MEDICARE, BC, MEDICAID | LOC: ZCOL.LAB 12:13 | DX: F32.9 Major depressive disorder, single episode, unspecified (principal) ==

== ENCOUNTER → 2019-06-20 | Outpatient (CLI) | payer MEDICARE, BC, MEDICAID ==
[2019-06-20 12:19] LABS: CREATININE, serum 1.37 (0.52-1.25); POTASSIUM 4.6 mmol/L (3.4-5.0)
== END ==
LOC: ZCOL.LAB 11:53
PROVIDERS: Internal Medicine
DX: N18.3 Chronic kidney disease, stage 3 (moderate) (principal)

== ENCOUNTER → 2019-11-05 | Outpatient (CLI) | payer MEDICARE, BC, MEDICAID ==
[~2019-11-05] MED LIST changes: +SEROQUEL50 MG PO
== END ==
LOC: ZCOL.LAB 11:42
DX: U07.1 COVID-19 (principal)

== ENCOUNTER → 2019-12-28 | Outpatient (CLI) | payer MEDICARE, BC, MEDICAID ==
[~2019-12-28] MED LIST changes: +OSCAL 500 TAB500 MG PO; +RT Albuterol HFA MDI IH; +RT Anoro Ellipta IH; +ULTRAM 50MG TAB50 MG PO
== END ==
LOC: ZCOL.LAB 16:06
DX: E03.9 Hypothyroidism, unspecified (principal)

== ENCOUNTER 2020-01-17 14:19 | Inpatient (IN) | payer MEDICARE, BC, MEDICAID ==
[~2020-01-17] VITALS: Ht 185.4 cm; Wt 82.2 kg
[~2020-01-17 14:19] MED LIST changes: -DEPAKOTE ER 25250 MG PO; -GOOD NEIGH1200 MG/15 PO; -HYCET SOLN PO; -IMODIUM A-D2 MG PO; -LEVASOLN PEG; -MAG-AL PLUS 3030 ML PO; -MIRALAX119G PO; -PROAIR HFA0.09 MG/AC IH; -ROXICODONE 55 MG/TAB PO; -VIRTUSSIN AC 1118 ML PO
[2020-01-17] MEDS ORDERED: NORVASC2.5 MG PO (14:38)
[2020-01-17] MEDS ORDERED: DEPAKOTE ER 25250 MG PO (14:40)
[2020-01-17 15:32] LABS: BASO % 0.2 % (0.0-2.0); EOS % 0.2 % (0-4.0); GRAN # 10.5 (1.4-6.5); GRAN % 81.3 % (42.2-75.2); HEMATOCRIT 39.2 % (37.0-47.0); LYMPH # 1.6 (1.2-3.4); LYMPH % 12.2 % (20.0-51.0); MEAN CELL VOLUME 96 fl (80.0-100.0); MEAN CORPUSCULAR HEMOGLOBIN 32 pg (27.0-31.0); MEAN CORPUSCULAR HGB CONC 33 g/dl (33.0-37.0); MEAN PLATELET VOLUME 10.3 fl (7.4-10.4); MONO # 0.7 (0.1-0.6); MONO % 5.6 % (1.7-9.3); PLATELET COUNT 257 K/mm3 (130-400); RED BLOOD COUNT 4.08 M/mm3 (4.10-5.30); REDCELL DISTRIBUTION WIDTH-CV 12.5 % (11.5-14.5)
[2020-01-17 15:48] LABS: COLLECTION METHOD IN
[2020-01-17 15:49] LABS: ALBUMIN 3.9 gm/dL (3.5-5.0); BILIRUBIN,TOTAL 3.8 mg/dL (0.0-1.0); CREATININE, serum 1.08 (0.52-1.25); POTASSIUM 4.6 mmol/L (3.4-5.0); TOTAL PROTEIN 7.2 gm/dL (6.4-8.2)
[2020-01-17 15:57] LABS: PH 7 (5-8); SQUAMOUS EPITHELIAL 0-2 /hpf; URINE APPEARANCE Clear; URINE BACTERIA None Seen /hpf; URINE BILIRUBIN Negative (NEGATIVE); URINE BLOOD 1+ (NEGATIVE); URINE COLOR Amber; URINE GLUCOSE Negative (NEGATIVE); URINE KETONE Negative (NEGATIVE); URINE LEUKOCYTE ESTERASE Negative (NEGATIVE); URINE NITRATE Negative (NEGATIVE); URINE PROTEIN(semi-quant) Negative (NEGATIVE); URINE UROBILINOGEN Negative (NEGATIVE)
[2020-01-17] MEDS ORDERED: COZAAR100 MG PO (16:00)
[2020-01-17] MEDS ORDERED: LASIX 20MG TABL20 MG PO (16:01)
[2020-01-17] MEDS ORDERED: MIRALAX119G PO (16:03)
[2020-01-17] MEDS ORDERED: SODIUM CHLORIDE1 GM PO (16:07)
[2020-01-17] MEDS ORDERED: TYLENOL 325MG325 MG PO (16:09)
[2020-01-17] MEDS ORDERED: XANAX .25M0.25 MG/TA PO (16:15)
[2020-01-17] MEDS ORDERED: NORCO 325 MG-51 TAB PO ×2 (16:19→16:27)
[2020-01-17] MEDS ORDERED: VIRTUSSIN AC 1118 ML PO (16:20)
[2020-01-17] MEDS ORDERED: PROAIR HFA0.09 MG/AC IH (16:21)
[2020-01-17] MEDS ORDERED: GOOD NEIGH1200 MG/15 PO (16:22)
[2020-01-17] MEDS ORDERED: CEFTIN 250250 MG/TAB PO (16:23)
[2020-01-17] MEDS ORDERED: DULCOLAX S10 MG/SUPP RC (16:28)
[2020-01-17] MEDS ORDERED: ANUSOL-HC SUPPO25 MG RC (16:29)
[2020-01-17] MEDS ORDERED: IMODIUM A-D2 MG PO (16:30)
[2020-01-17] MEDS ORDERED: MAG-AL PLUS 3030 ML PO (16:31)
[2020-01-17] MEDS ORDERED: SALINE 45 ML45 ML NS (16:32)
[2020-01-17] MEDS ORDERED: LEVOXYL0.125 MG PO (16:33)
[2020-01-17 20:17] VITALS: BP 155/60; PULSE 78; TEMP 98.1
[2020-01-17 23:27] VITALS: BP 128/53; PULSE 85; TEMP 98.1
--- NOTE | 2020-01-17 23:30 | NUR ---
Pt admission procedure completed, alert, not fully oriented, roomair. Pt has an IV on rt hand, dry, intact. Folley running without complications. Pt has no N/V/D, fever, tingling, numbness, SOA, pain as per pt. Pt has a diminished heart and lung sound. Meds provided as per JUN, tolerated well. Helped her settled on bed, call light on reach, bed alarm is on. No further needs at this time.
--- NOTE | 2020-01-18 02:54 | NUR ---
Pt pulled her IV out and LILLIAM Garibay started a new IV on her Rt forarm. Pt seems confused and irritated even after getting prescribed medication. Pt was also trying to pull out her folley catheter couple of times. This nurse put her on mitts for some time untill she goes to sleep and settled down. No further needs at this time.
[2020-01-18 03:44] VITALS: BP 148/53; PULSE 77; TEMP 97.9
--- NOTE | 2020-01-18 05:56 | NUR ---
Pt talked whole night, did not get any sleep. Morning meds provided as per JUN, tolerated well. No further needs at this time.
[2020-01-18 06:41] LABS: BASO # 0.1 (0.0-0.2); BASO % 0.8 % (0.0-2.0); EOS # 0.2 (0.0-0.7); EOS % 2.9 % (0-4.0); GRAN # 5.6 (1.4-6.5); GRAN % 67.5 % (42.2-75.2); LYMPH # 1.7 (1.2-3.4); LYMPH % 19.9 % (20.0-51.0); MEAN CELL VOLUME 97 fl (80.0-100.0); MEAN CORPUSCULAR HGB CONC 33 g/dl (33.0-37.0); MEAN PLATELET VOLUME 10.8 fl (7.4-10.4); MONO # 0.7 (0.1-0.6); MONO % 8.5 % (1.7-9.3); PLATELET COUNT 202 K/mm3 (130-400); RED BLOOD COUNT 3.44 M/mm3 (4.10-5.30); REDCELL DISTRIBUTION WIDTH-CV 12.5 % (11.5-14.5)
[2020-01-18 06:53] LABS: ALBUMIN 3.1 gm/dL (3.5-5.0); BILIRUBIN,TOTAL 3.9 mg/dL (0.0-1.0); CALCIUM 8.1 mg/dL (8.4-10.2); CREATININE, serum 0.79 (0.52-1.25); POTASSIUM 3.6 mmol/L (3.4-5.0); TOTAL PROTEIN 5.9 gm/dL (6.4-8.2)
[2020-01-18 07:15] LABS: HEMATOCRIT 33.5 % (37.0-47.0); MEAN CORPUSCULAR HEMOGLOBIN 32 pg (27.0-31.0)
[2020-01-18 07:29] VITALS: BP 158/70; PULSE 81; TEMP 97.9
--- NOTE | 2020-01-18 08:00 | NUR ---
Patient in bed, alert. Attempted to reorient patient without success. Corea to dependent drainage with clear yellow urine in bag. Fluids infusing per orders to right hand IV. MItts in place as patient attempting to remove IV and Corea catheter. Will continue to monitor.
--- NOTE | 2020-01-18 10:57 | NUR ---
Notified Dr. Pritchard of consult.
[2020-01-18 11:26] VITALS: BP 148/79; PULSE 70; TEMP 98.4
--- NOTE | 2020-01-18 13:06 | NUR ---
Patient down for ERCP, daughter at bedside.
[2020-01-18 14:00] VITALS: BP 159/67; PULSE 69
--- NOTE | 2020-01-18 14:01 | NUR ---
Patient up from ERCP, drowsy but states she is cold, warm blanket provided. Daughter at bedside. Postop fluids infusing per order, denies further needs at this time. Post op VSS. Denies further needs at this time.
--- NOTE | 2020-01-18 15:26 | NUR ---
Dr. Rae in to see patient.
--- NOTE | 2020-01-18 15:34 | NUR ---
Wardrobe Image Consultant met with the patient and the patient's daughter/DPOA-HC, Kaye to complete initial intake. The patient was sleeping. The patient lives in [facility] at [facility]. The plan is to return there at discharge. The patient receives assistance with ADLs and uses a walker for ambulation. The patient's PCP is Dr. More and patient receives medications from [facility]. The patient has advanced directives in the EMR. CLINT faxed updates to An to [facility]. The patient had Covid in August. CLINT inquired about the need for a Covid test. An consulted with her team and she confirmed there does not need to be a Covid test for this patient prior to her return to [facility]. CLINT collaborated the above information with the patient's nurse.
[2020-01-18 16:00] VITALS: BP 138/60; PULSE 66
--- NOTE | 2020-01-18 18:52 | NUR ---
Patient has done well throughout the day, patient is more awake this afternoon and tolerating clear liquid diet. Daughter remains at bedside, fluids infusing per orders to right hand IV. Reported off to nightclub manager. Patient repositioned throughout the day.
[2020-01-18 19:57] VITALS: BP 140/52; PULSE 82; TEMP 98.2
--- NOTE | 2020-01-18 20:15 | NUR ---
Pt. laying in bed. Pt. is alert and confused. IV to rt. hand patent, IV fluids infusing per orders. Corea catheter to DD, clear yellow urine noted. Pt. denies pain or other needs, call light within reach.
[2020-01-19] VITALS (12 sets, daily range): BP systolic 122–187; BP diastolic 54–71; PULSE 69–86; TEMP 98–98.9
[2020-01-19 07:22] LABS: BASO # 0.1 (0.0-0.2); BASO % 0.9 % (0.0-2.0); EOS # 0.3 (0.0-0.7); EOS % 3.6 % (0-4.0); GRAN # 4.6 (1.4-6.5); GRAN % 66.3 % (42.2-75.2); HEMATOCRIT 37.1 % (37.0-47.0); HEMOGLOBIN 12.2 g/dl (12.5-16.0); LYMPH # 1.4 (1.2-3.4); LYMPH % 20.3 % (20.0-51.0); MEAN CELL VOLUME 98 fl (80.0-100.0); MEAN CORPUSCULAR HEMOGLOBIN 32 pg (27.0-31.0); MEAN CORPUSCULAR HGB CONC 33 g/dl (33.0-37.0); MEAN PLATELET VOLUME 11.7 fl (7.4-10.4); MONO # 0.6 (0.1-0.6); MONO % 8.6 % (1.7-9.3); PLATELET COUNT 217 K/mm3 (130-400); REDCELL DISTRIBUTION WIDTH-CV 12.6 % (11.5-14.5)
--- NOTE | 2020-01-19 07:30 | NUR ---
Contacted Patients daughterKYA for consent for procedure. Notified OR daughter would like to talk to Dr. Carvalho prior to signing consent.
[2020-01-19 07:32] LABS: ALBUMIN 3.4 gm/dL (3.5-5.0); BILIRUBIN,TOTAL 4.1 mg/dL (0.0-1.0); CALCIUM 8.4 mg/dL (8.4-10.2); CREATININE, serum 0.76 (0.52-1.25); POTASSIUM 3.3 mmol/L (3.4-5.0); TOTAL PROTEIN 6.4 gm/dL (6.4-8.2)
--- NOTE | 2020-01-19 08:00 | NUR ---
Patient down to OR.
[2020-01-19] MEDS ORDERED: ROXICODONE 55 MG/TAB PO (10:11)
[2020-01-19] MEDS ORDERED: COLACE 100100 MG/CAP PO (10:11)
--- NOTE | 2020-01-19 10:30 | NUR ---
Patient up from OR, drowsy but arouses to voice and touch. daughter at bedside. Lap sites x4 with edges well approximated. Post op fluids infusing to left hand IV. Denies further needs at this time.
--- NOTE | 2020-01-19 12:44 | NUR ---
Dr. Ross in to see patient.
--- NOTE | 2020-01-19 18:33 | NUR ---
Patient has done well since up from OR. Daughter at bedside. Patient tolerating diet. Fluids and antibiotics infusing per orders. Denies pain. Denies further needs at this time. Will report off to night guard.
--- NOTE | 2020-01-19 20:15 | NUR ---
Pt. laying in bed at this time. Pt. is alert and confused. IV to lt. hand patent, IV fluids infusing per orders. Corea catheter to DD, clear yellow urine noted. Abd. lap sites x4, well approximated with swiftset. Pt. denies further needs, call light within reach, bed alarm on.
[2020-01-20 00:24] VITALS: BP 134/67; PULSE 91; TEMP 98.9
[2020-01-20 04:19] VITALS: BP 127/55; PULSE 92; TEMP 98.8
[2020-01-20 06:34] LABS: BASO % 0.2 % (0.0-2.0); EOS % 0.1 % (0-4.0); GRAN # 10.2 (1.4-6.5); GRAN % 80.8 % (42.2-75.2); HEMOGLOBIN 10.3 g/dl (12.5-16.0); LYMPH # 1.3 (1.2-3.4); LYMPH % 10.6 % (20.0-51.0); MEAN CELL VOLUME 97 fl (80.0-100.0); MEAN CORPUSCULAR HEMOGLOBIN 32 pg (27.0-31.0); MEAN CORPUSCULAR HGB CONC 33 g/dl (33.0-37.0); MEAN PLATELET VOLUME 10.8 fl (7.4-10.4); MONO % 7.8 % (1.7-9.3); PLATELET COUNT 228 K/mm3 (130-400); RED BLOOD COUNT 3.22 M/mm3 (4.10-5.30); REDCELL DISTRIBUTION WIDTH-CV 12.7 % (11.5-14.5)
[2020-01-20 06:48] LABS: ALBUMIN 2.9 gm/dL (3.5-5.0); BILIRUBIN,TOTAL 1.3 mg/dL (0.0-1.0); CALCIUM 7.8 mg/dL (8.4-10.2); CREATININE, serum 0.77 (0.52-1.25); POTASSIUM 4.2 mmol/L (3.4-5.0); TOTAL PROTEIN 5.5 gm/dL (6.4-8.2)
[2020-01-20 06:51] LABS: HEMATOCRIT 31.2 % (37.0-47.0)
[2020-01-20 12:22] VITALS: BP 142/53; PULSE 70; TEMP 97.7
[2020-01-20 16:46] VITALS: BP 152/53; PULSE 79; TEMP 98.1
--- NOTE | 2020-01-20 18:00 | NUR ---
Patient was very confused and emotional this morning. She was crying out and was not able to explained what she needed. She finally fell asleep around 0800. Her daughter came to visit around 1000 and has been with her since. Patient slept until about 1500, she would wake up but did not answer questions and would fall back to sleep. Denies pain and nausea. Her daughter helped her eat supper. Patient is alert and confused at this time. No other changes at this time. Call light within reach.
[2020-01-20 20:30] VITALS: BP 141/52; PULSE 85; TEMP 98.5
--- NOTE | 2020-01-20 20:50 | NUR ---
Pt. laying in bed at this time. Pt. is Alert and confused, assessment complete. IV to lt. hand patent, IV fluids infusing per orders. Abd. lap sites x4 well approximated. Corea catheter to DD, Clear yellow urine noted. Pt. states "My stomach hurts". Giving pain meds per orders. Pt. denies further needs, call light within reach.
[2020-01-20 23:41] VITALS: BP 135/76; PULSE 98; TEMP 98.3
[2020-01-21 07:36] LABS: MEAN CELL VOLUME 99 fl (80.0-100.0); MEAN CORPUSCULAR HEMOGLOBIN 32 pg (27.0-31.0); MEAN CORPUSCULAR HGB CONC 32 g/dl (33.0-37.0); MEAN PLATELET VOLUME 11.1 fl (7.4-10.4); PLATELET COUNT 169 K/mm3 (130-400); RED BLOOD COUNT 3.12 M/mm3 (4.10-5.30); REDCELL DISTRIBUTION WIDTH-CV 13.1 % (11.5-14.5)
[2020-01-21 07:51] LABS: HEMATOCRIT 30.9 % (37.0-47.0)
[2020-01-21 07:52] VITALS: BP 123/59; PULSE 73; TEMP 97.9
[2020-01-21 07:58] LABS: ALBUMIN 2.7 gm/dL (3.5-5.0); BILIRUBIN,TOTAL 0.9 mg/dL (0.0-1.0); CALCIUM 7.6 mg/dL (8.4-10.2); CREATININE, serum 0.7 (0.52-1.25); POTASSIUM 3.8 mmol/L (3.4-5.0); TOTAL PROTEIN 5.2 gm/dL (6.4-8.2)
[2020-01-21 12:00] VITALS: BP 134/50; PULSE 71; TEMP 98
--- NOTE | 2020-01-21 12:42 | NUR ---
Initial visit; Patient sleeping. Intelligence Intern spoke with Elvira's daughter who stated that Elvira seemed to be doing better with her hospitalization since she was able to be with her. Elvira was not able to have visitors at her residence, so both mother and daughter are happy they can be together. Intelligence Intern offered God's blessings letting daughter know further spiritual care is available for Elvira.
[2020-01-21] MEDS ORDERED: HYCET SOLN PO (12:59)
[2020-01-21] MEDS ORDERED: LEVASOLN PEG (13:00)
--- NOTE | 2020-01-21 14:01 | NUR ---
Pourer Buggy Ladle faxed clinical update to Apryl at [facility]. Patient received IV Ativan last evening and will need to be stable on PO for 24 hours prior to discharge. SW updated Hospitalist. SW also met with patient and patient's daughter, Kaye to provide update.
[2020-01-21 16:43] VITALS: BP 157/57; PULSE 70; TEMP 97.8
--- NOTE | 2020-01-21 17:30 | NUR ---
Patient resting in bed, daughter at bedside. Patient is alert but confused per her baseline. Patient has not complained of pain today and has not appeared to be in discomfort. Patient is passing gas but has not had a bowel movement yet. Patient denies needs at this time, call light within reach.
[2020-01-21 20:05] VITALS: BP 132/57; PULSE 86; TEMP 97.9
[2020-01-22 01:17] VITALS: BP 130/60; PULSE 68; TEMP 98.3
--- NOTE | 2020-01-22 04:46 | NUR ---
Patient has been resting most the night. She has not been restless. Her daughter has been at bedside. Patient has been eating and drinking without issues. Tylenol given once for pain. Denies nausea. No other changes at this time. Call light with in reach. Bed alarm on.
[2020-01-22 05:17] VITALS: BP 168/73; PULSE 74; TEMP 98.4
[2020-01-22 07:20] VITALS: BP 173/67; PULSE 76; TEMP 98.6
--- NOTE | 2020-01-22 08:58 | NUR ---
PT RESTING IN BED ATE 30 % OF BREAKFAST. DAUGHTER IN ROOM D/T PT BASELINE DEMENTIA. VSS, INCISIONS TO ABDOMEN CDI. PT DENIES NEEDS AT THIS TIME.
--- NOTE | 2020-01-22 09:08 | NUR ---
PLAN ON DISCHARGE TO [facility] LATER TODAY. FOLLOW UP WITH CREDIT SUPPORT SPECIALIST.
--- NOTE | 2020-01-22 09:40 | NUR ---
Emptied vanessa bag of 1050 ml of clear pale yellow urine. Vanessa ballon had 8.4 ml normal saline. Catheter tip intact upon removal. Pericare provided. Patient expressed pain upon removal that resolved quickly. Otherwise patient tolerated procedure well.
--- NOTE | 2020-01-22 09:43 | NUR ---
Press Technician faxed updates to Apryl at [facility].
--- NOTE | 2020-01-22 09:53 | NUR ---
INT catheter removed per physicans orders. INT site clear of inflitration and phelebitis. Catheter tip intact upon removal. Pressure applied 1 min, no bleeding occured upon removal. Bandaid applied.
--- NOTE | 2020-01-22 09:57 | NUR ---
Chief Engineer Production presented the IM form to the patient and the patient's daughter/DPOA-HC. The patient's daughter understood and signed the form. A copy was provided to the patient and the original was placed in the chart.
--- NOTE | 2020-01-22 10:24 | NUR ---
The patient is to discharge back to [facility] today, 01/21. Apryl from [facility] reports they can transport the patient at 11:30. SW collaborated this information with the patient's nurse.
[2020-01-22 10:43] VITALS: BP 139/69; PULSE 86; TEMP 98
--- NOTE | 2020-01-22 11:35 | NUR ---
REPORT TO RICHARD MARROQUIN. [facility].
== END 2020-01-22 11:45 | DRG 418 ==
LOC: COL.ER 14:19 → SURG 17:20
PROVIDERS: Emergency Medicine; Nurse Practitioner Primary Care; Physician Assistant; Surgery
PROC: 0FC98ZZ Extirpation of Matter from Common Bile Duct, Via Natural or Artificial Opening Endoscopic (ICD-10-PCS; 2020-01-18)
PROC: 0FT44ZZ Resection of Gallbladder, Percutaneous Endoscopic Approach (ICD-10-PCS; principal; 2020-01-19 08:00)
DX: K80.62 Calculus of gallbladder and bile duct with acute cholecystitis without obstruction (principal); E87.1 Hypo-osmolality and hyponatremia; F41.9 Anxiety disorder, unspecified; E03.9 Hypothyroidism, unspecified; I10 Essential (primary) hypertension; E78.5 Hyperlipidemia, unspecified; G62.9 Polyneuropathy, unspecified; F03.90 Unspecified dementia, unspecified severity, without behavioral disturbance, psychotic disturbance, mood disturbance, and anxiety; Z86.73 Personal history of transient ischemic attack (TIA), and cerebral infarction without residual deficits; Z88.0 Allergy status to penicillin; Z87.891 Personal history of nicotine dependence; Z86.19 Personal history of other infectious and parasitic diseases
CPT/HCPCS: 99232-AI; 99233-AI; 99239; C1769; C9113; J0330; J1100; J1650; J1956; J2060; J2405; J2704; J3010; J7030; J7120; Q9967

== ENCOUNTER → 2020-01-17 | Outpatient (CLI) | payer MEDICARE, BC, MEDICAID ==
[~2020-01-17] MED LIST changes: +DEPAKOTE ER 25250 MG PO; +GOOD NEIGH1200 MG/15 PO; +HYCET SOLN PO; +IMODIUM A-D2 MG PO; +LEVASOLN PEG; +MAG-AL PLUS 3030 ML PO; +MIRALAX119G PO; +PROAIR HFA0.09 MG/AC IH; +ROXICODONE 55 MG/TAB PO; +VIRTUSSIN AC 1118 ML PO
[2020-01-17 11:49] LABS: BASO # 0.1 (0.0-0.2); BASO % 0.3 % (0.0-2.0); EOS % 0.1 % (0-4.0); GRAN # 13.3 (1.4-6.5); GRAN % 83.6 % (42.2-75.2); HEMATOCRIT 38.1 % (37.0-47.0); HEMOGLOBIN 12.6 g/dl (12.5-16.0); LYMPH # 1.4 (1.2-3.4); LYMPH % 8.7 % (20.0-51.0); MEAN CELL VOLUME 97 fl (80.0-100.0); MEAN CORPUSCULAR HEMOGLOBIN 32 pg (27.0-31.0); MEAN CORPUSCULAR HGB CONC 33 g/dl (33.0-37.0); MEAN PLATELET VOLUME 10.9 fl (7.4-10.4); MONO # 1.1 (0.1-0.6); MONO % 6.7 % (1.7-9.3); PLATELET COUNT 275 K/mm3 (130-400); RED BLOOD COUNT 3.92 M/mm3 (4.10-5.30); REDCELL DISTRIBUTION WIDTH-CV 12.4 % (11.5-14.5)
[2020-01-17 11:55] LABS: ALBUMIN 3.7 gm/dL (3.5-5.0); BILIRUBIN,TOTAL 3.1 mg/dL (0.0-1.0); CALCIUM 8.9 mg/dL (8.4-10.2); POTASSIUM 4.7 mmol/L (3.4-5.0); TOTAL PROTEIN 6.3 gm/dL (6.4-8.2)
== END ==
LOC: ZCOL.LAB 11:27
PROVIDERS: Family Medicine
DX: R53.83 Other fatigue (principal)

== ENCOUNTER → 2020-09-11 | Outpatient (CLI) | payer MEDICARE, BC, MEDICAID ==
[~2020-09-11] MED LIST changes: +DEPAKOTE ER 25250 MG PO; +GOOD NEIGH1200 MG/15 PO; +HYCET SOLN PO; +IMODIUM A-D2 MG PO; +LEVASOLN PEG; +MAG-AL PLUS 3030 ML PO; +MIRALAX119G PO; +PROAIR HFA0.09 MG/AC IH; +ROXICODONE 55 MG/TAB PO; +VIRTUSSIN AC 1118 ML PO
[2020-09-11 12:25] LABS: BASO # 0.1 (0.0-0.2); BASO % 0.9 % (0.0-2.0); EOS # 0.3 (0.0-0.7); EOS % 3.7 % (0-4.0); GRAN # 4.3 (1.4-6.5); HEMATOCRIT 38.5 % (37.0-47.0); HEMOGLOBIN 12.4 g/dl (12.5-16.0); LYMPH # 2.3 (1.2-3.4); LYMPH % 29.5 % (20.0-51.0); MEAN CELL VOLUME 99 fl (80.0-100.0); MEAN CORPUSCULAR HEMOGLOBIN 32 pg (27.0-31.0); MEAN CORPUSCULAR HGB CONC 32 g/dl (33.0-37.0); MEAN PLATELET VOLUME 11.3 fl (7.4-10.4); MONO # 0.8 (0.1-0.6); MONO % 10.6 % (1.7-9.3); PLATELET COUNT 243 K/mm3 (130-400); REDCELL DISTRIBUTION WIDTH-CV 12.3 % (11.5-14.5)
[2020-09-11 12:34] LABS: ALBUMIN 4.1 gm/dL (3.5-5.0); BILIRUBIN,TOTAL 0.4 mg/dL (0.0-1.0); CALCIUM 8.8 mg/dL (8.4-10.2); CREATININE, serum 1.27 (0.52-1.25); POTASSIUM 4.4 mmol/L (3.4-5.0); TOTAL PROTEIN 7.2 gm/dL (6.4-8.2)
[2020-09-11 13:04] LABS: TSH w REFLEX 0.874 uIU/mL (0.465-4.680)
[2020-09-11 13:07] LABS: VALPROIC ACID (DEPAKENE) 37.9 ug/mL (50.0-100.0)
== END ==
LOC: ZCOL.LAB 11:24
PROVIDERS: Internal Medicine
DX: D63.1 Anemia in chronic kidney disease (principal); N18.30 Chronic kidney disease, stage 3 unspecified; E03.9 Hypothyroidism, unspecified; F06.0 Psychotic disorder with hallucinations due to known physiological condition

== ENCOUNTER → 2021-04-29 | Outpatient (CLI) | payer MEDICARE, BC, MEDICAID ==
[2021-04-29 15:25] LABS: CALCIUM 8.1 mg/dL (8.4-10.2); CREATININE, serum 1.23 mg/dL (0.57-1.11); POTASSIUM 3.9 mmol/L (3.5-4.5)
== END ==
LOC: ZCOL.LAB 13:33
PROVIDERS: Internal Medicine Nephrology
DX: N18.30 Chronic kidney disease, stage 3 unspecified (principal)

== ENCOUNTER → 2021-08-29 | Outpatient (CLI) | payer MEDICARE, BC, MEDICAID ==
[2021-08-29 15:37] LABS: ALBUMIN 3.8 gm/dL (3.4-4.8); BILIRUBIN,TOTAL 0.6 mg/dL (0.2-1.2); CALCIUM 8.6 mg/dL (8.4-10.2); CREATININE, serum 1.1 mg/dL (0.57-1.11); POTASSIUM 4.9 mmol/L (3.5-4.5); THYROID STIMULATING HORMONE 0.494 uIU/mL (0.350-4.940); TOTAL PROTEIN 6.9 gm/dL (6.2-8.1); VALPROIC ACID (DEPAKENE) 38.7 ug/mL (43.5-90.5)
[2021-08-29 20:46] LABS: BASO # 0.1 K/mm3 (0.0-0.2); EOS # 0.4 K/mm3 (0.0-0.7); GRAN # 4.1 K/mm3 (1.4-6.5); HEMATOCRIT 36.7 % (37.0-47.0); HEMOGLOBIN 12.3 g/dl (12.5-16.0); LYMPH # 2.8 K/mm3 (1.2-3.4); LYMPH % 34.4 % (20.0-51.0); MEAN CELL VOLUME 93 fl (80.0-100.0); MEAN CORPUSCULAR HEMOGLOBIN 31 pg (27-31); MEAN CORPUSCULAR HGB CONC 34 g/dl (33.0-37.0); MEAN PLATELET VOLUME 10.9 fl (7.4-10.4); MONO # 0.7 K/mm3 (0.1-0.6); MONO % 9.1 % (1.7-9.3); PLATELET COUNT 246 K/mm3 (130-400); RED BLOOD COUNT 3.95 M/mm3 (4.10-5.30); REDCELL DISTRIBUTION WIDTH-CV 12.1 % (11.5-14.5)
== END ==
LOC: ZCOL.LAB 07:30
PROVIDERS: Internal Medicine
DX: E03.9 Hypothyroidism, unspecified (principal); N18.30 Chronic kidney disease, stage 3 unspecified

== ENCOUNTER 2022-07-27 05:43 | Emergency (ER) | payer MEDICARE, BC, MEDICAID ==
[~2022-07-27] VITALS: Ht 182.9 cm; Wt 82.7 kg
[2022-07-27 05:45] VITALS: TEMP 98.3
[2022-07-27 07:08] LABS: ALBUMIN 3.5 gm/dL (3.4-4.8); BILIRUBIN,TOTAL 0.4 mg/dL (0.2-1.2); C-REACTIVE PROTEIN 0.99 mg/dL (0.00-0.50); CALCIUM 8.9 mg/dL (8.4-10.2); CREATININE, serum 1.82 mg/dL (0.57-1.11)
[2022-07-27 07:24] LABS: COLLECTION METHOD IN
[2022-07-27 07:29] LABS: SQUAMOUS EPITHELIAL None Seen /hpf (0-10); URINE BACTERIA Rare /hpf (NONE SEEN); URINE RBC 0-2 /hpf (0-2)
[2022-07-27 07:30] LABS: BASO # 0.1 K/mm3 (0.0-0.2); BASO % 0.8 % (0.0-2.0); EOS # 0.6 K/mm3 (0.0-0.7); EOS % 7.6 % (0.0-4.0); GRAN # 4.2 K/mm3 (1.4-6.5); GRAN % 54.6 % (42.2-75.2); HEMATOCRIT 37.3 % (37.0-47.0); HEMOGLOBIN 12.2 g/dl (12.5-16.0); LYMPH # 1.9 K/mm3 (1.2-3.4); LYMPH % 24.6 % (20.0-51.0); MEAN CELL VOLUME 99 fl (80.0-100.0); MEAN CORPUSCULAR HEMOGLOBIN 32 pg (27-31); MEAN CORPUSCULAR HGB CONC 33 g/dl (33.0-37.0); MONO # 0.9 K/mm3 (0.1-0.6); MONO % 11.9 % (1.7-9.3); PLATELET COUNT 221 K/mm3 (130-400); RED BLOOD COUNT 3.77 M/mm3 (4.10-5.30); REDCELL DISTRIBUTION WIDTH-CV 12.6 % (11.5-14.5)
[2022-07-27 07:37] LABS: PH 5.5 (5.0-8.5); URINE APPEARANCE Hazy (CLEAR/HAZY); URINE BLOOD Negative (NEGATIVE); URINE COLOR Yellow (YELLOW); URINE GLUCOSE Negative (NEGATIVE); URINE KETONE Negative (NEGATIVE); URINE NITRATE Negative (NEGATIVE); URINE PROTEIN(semi-quant) Negative (NEGATIVE); URINE UROBILINOGEN 0.2 E.U/dL (0.2-1.0)
[2022-07-27 08:54] VITALS: BP 172/85; PULSE 79
[2022-07-28] MEDS ORDERED: CEPHALEXIN500 M1 PO (12:43)
== END 2022-07-27 08:54 | disposition home or self-care (01) ==
LOC: COL.ER 05:43
PROVIDERS: Emergency Medicine
DX: R10.84 Generalized abdominal pain (principal); E87.5 Hyperkalemia; N39.0 Urinary tract infection, site not specified; R79.89 Other specified abnormal findings of blood chemistry; R74.8 Abnormal levels of other serum enzymes; Z28.310 Unvaccinated for COVID-19
CPT/HCPCS: J7030

== ENCOUNTER → 2022-09-22 | Outpatient (REF) | payer MEDICARE, BC, MEDICAID ==
[2022-09-22 11:49] LABS: ALBUMIN 3.8 gm/dL (3.4-4.8); BILIRUBIN,TOTAL 0.7 mg/dL (0.2-1.2); CREATININE, serum 1.52 mg/dL (0.57-1.11); POTASSIUM 5.1 mmol/L (3.5-4.5); TOTAL PROTEIN 7.2 gm/dL (6.2-8.1); VALPROIC ACID (DEPAKENE) 57.8 ug/mL (43.5-90.5)
[2022-09-22 11:52] LABS: BASO # 0.1 K/mm3 (0.0-0.2); EOS # 0.4 K/mm3 (0.0-0.7); EOS % 4.8 % (0.0-4.0); GRAN # 4.5 K/mm3 (1.4-6.5); GRAN % 54.6 % (42.2-75.2); HEMOGLOBIN 12.3 g/dl (12.5-16.0); LYMPH # 2.5 K/mm3 (1.2-3.4); LYMPH % 30.7 % (20.0-51.0); MEAN CELL VOLUME 101 fl (80.0-100.0); MEAN CORPUSCULAR HEMOGLOBIN 32 pg (27-31); MEAN CORPUSCULAR HGB CONC 32 g/dl (33.0-37.0); MEAN PLATELET VOLUME 10.9 fl (7.4-10.4); MONO # 0.7 K/mm3 (0.1-0.6); MONO % 8.5 % (1.7-9.3); PLATELET COUNT 219 K/mm3 (130-400); RED BLOOD COUNT 3.86 M/mm3 (4.10-5.30)
[2022-09-22 12:30] LABS: TSH w REFLEX 1.665 uIU/mL (0.350-4.940)
== END ==
LOC: ZCOL.LAB 10:32
PROVIDERS: Internal Medicine
DX: N18.30 Chronic kidney disease, stage 3 unspecified (principal); D63.1 Anemia in chronic kidney disease; E03.9 Hypothyroidism, unspecified; Z79.83 Long term (current) use of bisphosphonates

== ENCOUNTER 2023-04-26 16:37 | Outpatient (RCR) | payer MEDICARE, BC, MEDICAID ==
[~2023-04-26 16:37] MED LIST changes: +ASPI325T6 PO; +COLACE LIQUI10 MG/ML PO; -MIRALAX119G PO; +TYLENOL 500MG500 MG PO; +[UNRECOGNIZED DRUG - OTHER] PO
[2023-04-26 16:48] LABS: CALCIUM 8.9 mg/dL (8.4-10.2); CREATININE, serum 1.61 mg/dL (0.57-1.11); POTASSIUM 5.5 mmol/L (3.5-4.5)
== END 2023-05-25 | disposition home or self-care (01) ==
LOC: ZCOL.LAB
PROVIDERS: Internal Medicine Nephrology
DX: N18.30 Chronic kidney disease, stage 3 unspecified (principal)

== ENCOUNTER → 2023-08-18 | Outpatient (REF) | payer MEDICARE, BC, MEDICAID ==
[2023-08-18 11:27] LABS: CALCIUM 8.7 mg/dL (8.4-10.2); CREATININE, serum 1.39 mg/dL (0.57-1.11); POTASSIUM 4.7 mEq/L (3.5-4.5)
== END ==
LOC: ZCOL.LAB 10:43
PROVIDERS: Internal Medicine Nephrology
DX: N18.30 Chronic kidney disease, stage 3 unspecified (principal)

== ENCOUNTER → 2023-12-01 | Outpatient (REF) | payer MEDICARE, BC, MEDICAID ==
[2023-12-02 05:18] LABS: CALCIUM 8.6 mg/dL (8.4-10.2); CREATININE, serum 1.52 mg/dL (0.57-1.11)
== END ==
LOC: ZCOL.LAB 20:27
PROVIDERS: Internal Medicine Nephrology
DX: N18.30 Chronic kidney disease, stage 3 unspecified (principal)